=== PATIENT | female | born 1950 | race African-American/Black ===

== ENCOUNTER 2020-12-11 10:46 | Outpatient (REF) | payer MEDICARE, SELFPAY ==
[2020-12-11 12:00] LABS: MANUAL DIFF FLAG NO
[2020-12-11 12:06] LABS: Basophils Percent Auto 0.3 % (0-2); Eosinophils Absolute Auto 0.1 X10*3/uL (0.0-0.4); Hematocrit 46.2 % (37-47); Hemoglobin 14.8 g/dl (12.0-16.0); Imm Gran Abs Auto 0.01 X10*3/uL (0.00-0.03); Imm Gran Pct Auto 0.2 % (0.0-0.4); Lymphocytes Absolute Auto 3.1 X10*3/uL (1.2-4.9); Lymphocytes Percent Auto 49.2 % (20-40); Mean Corpuscular Hemoglobin 30.1 pg (27.0-33.0); Mean Corpuscular Volume 94.1 fL (80-98); Mean Platelet Volume 9.5 fL (9.4-12.3); Monocytes Absolute Auto 0.4 X10*3/uL (0.1-1.2); Monocytes Percent Auto 6.6 % (2-11); Neutrophils Absolute Auto 2.7 X10*3/uL (2.0-8.3); Neutrophils Percent Auto 41.7 % (45-73); Platelet Count 323 X10*3/uL (160-400); Red Blood Count 4.91 X10*6/uL (4.20-5.50); Red Cell Distribution Width 13.6 % (11.0-16.0); White Blood Count 6.4 X10*3/uL (4.8-10.8)
[2020-12-11 12:29] LABS: Alanine Aminotransferase 17 U/L (0-31); Albumin Level 4.1 g/dL (3.5-5.0); Alkaline Phosphatase 78 U/L (39-117); Anion Gap 14 (12-20); Aspartate Amino Transferase 18 U/L (5-31); Bilirubin Total 0.5 mg/dL (0.0-1.0); Blood Urea Nitrogen 10 mg/dL (9-16); Calcium 8.9 mg/dL (8.4-10.2); Carbon Dioxide 25 mmol/L (22-29); Chloride 107 mmol/L (96-108); Cholesterol 155 mg/dL; Estimated Glomerular Filt Rate > 60; Glucose Fasting 82 mg/dL (60-99); HDL Cholesterol 41 mg/dL; LDL Cholesterol Calculated 97 mg/dl; Potassium 4.5 mmol/l (3.3-5.1); Sodium 141 mmol/L (135-145); Total Protein 7.8 g/dL (6.5-8.0); Triglycerides 87 mg/dL
[2020-12-11 12:38] LABS: Free T4 (Free Thyroxine) 1.25 ng/dL (0.71-1.85); Thyroid Stimulating Hormone 0.11 uIU/mL (0.32-4.0)
== END 2020-12-11 10:47 | disposition home or self-care (01) ==
LOC: HO.LAB 10:46
PROVIDERS: PCP Internal Medicine; Visit Provider Internal Medicine
DX: E78.5 Hyperlipidemia, unspecified (principal); E03.9 Hypothyroidism, unspecified; E66.9 Obesity, unspecified; F17.200 Nicotine dependence, unspecified, uncomplicated
CPT/HCPCS: 36415; 80053; 80061; 84439; 84443; 85025

== ENCOUNTER 2021-08-21 08:11 | Outpatient (REF) | payer MEDICARE, SELFPAY ==
[2021-08-21 09:17] LABS: Basophils Percent Auto 0.5 % (0-2); Eosinophils Absolute Auto 0.1 X10*3/uL (0.0-0.4); Eosinophils Percent Auto 2.1 % (0-4); Hematocrit 47.4 % (37-47); Hemoglobin 15.3 g/dl (12.0-16.0); Imm Gran Abs Auto 0.02 X10*3/uL (0.00-0.03); Imm Gran Pct Auto 0.3 % (0.0-0.4); Lymphocytes Absolute Auto 2.9 X10*3/uL (1.2-4.9); Lymphocytes Percent Auto 47.4 % (20-40); MANUAL DIFF FLAG SCAN; Mean Corpuscular HGB Conc 32.3 g/dl (31.0-35.0); Mean Corpuscular Hemoglobin 29.3 pg (27.0-33.0); Mean Corpuscular Volume 90.8 fL (80-98); Monocytes Absolute Auto 0.4 X10*3/uL (0.1-1.2); Monocytes Percent Auto 5.9 % (2-11); Neutrophils Absolute Auto 2.7 X10*3/uL (2.0-8.3); Neutrophils Percent Auto 43.8 % (45-73); PLT CLUMP 1; Red Blood Count 5.22 X10*6/uL (4.20-5.50); Red Cell Distribution Width 13.7 % (11.0-16.0); SCAN SMEAR FLAG 1
[2021-08-21 09:20] LABS: Appearance Urine CLEAR; Color Urine YELLOW; Glucose Urine UA NEG (NEG); Leukocyte Esterase Urine NEG (NEG); Nitrite Urine NEG (NEG); PH 5.5 (5.0-8.0); Specific Gravity - Urine 1.025 (1.005-1.025); Urine Blood TRACE (NEG); Urine Ketones NEG (NEG); Urine Protein NEG (NEG-TRACE)
[2021-08-21 09:35] LABS: RBC Urine 0-2 /HPF (0); WBC Urine 0 /HPF (0-4)
[2021-08-21 09:36] LABS: Mucus Urine 1+ /LPF; Squamous Epithelial Cell Urine 1+ /LPF
[2021-08-21 09:40] LABS: UACC Culture Trigger NO
[2021-08-21 09:49] LABS: Platelet Count 185 X10*3/uL (160-400); White Blood Count 6.1 X10*3/uL (4.8-10.8)
[2021-08-21 09:50] LABS: SLIDE REVIEW VERIFIED
== END 2021-08-21 08:12 | disposition home or self-care (01) ==
LOC: HO.LAB 08:11
PROVIDERS: PCP Internal Medicine; Visit Provider Internal Medicine
DX: I73.9 Peripheral vascular disease, unspecified (principal); E66.9 Obesity, unspecified; E03.9 Hypothyroidism, unspecified; F17.200 Nicotine dependence, unspecified, uncomplicated; E78.00 Pure hypercholesterolemia, unspecified
CPT/HCPCS: 36415; 80053; 80061; 81001; 84439; 84443; 85025

== ENCOUNTER 2022-01-14 08:54 | Outpatient (REF) | payer MEDICARE, SELFPAY ==
[2022-01-14 09:38] LABS: MANUAL DIFF FLAG NO
[2022-01-14 10:13] LABS: Basophils Percent Auto 0.4 % (0-2); Eosinophils Absolute Auto 0.1 X10*3/uL (0.0-0.4); Hemoglobin 15.2 g/dl (12.0-16.0); Imm Gran Abs Auto 0.01 X10*3/uL (0.00-0.03); Imm Gran Pct Auto 0.1 % (0.0-0.4); Lymphocytes Percent Auto 43.7 % (20-40); Mean Corpuscular HGB Conc 31.7 g/dl (31.0-35.0); Mean Corpuscular Hemoglobin 29.7 pg (27.0-33.0); Mean Corpuscular Volume 93.9 fL (80.0-98.0); Mean Platelet Volume 10.1 fL (9.4-12.3); Monocytes Absolute Auto 0.5 X10*3/uL (0.1-1.2); Monocytes Percent Auto 7.7 % (2-11); Neutrophils Absolute Auto 3.2 x10*3/uL (2.0-8.3); Neutrophils Percent Auto 46.1 % (45-73); Platelet Count 251 X10*3/uL (160-400); Red Blood Count 5.11 X10*6/uL (4.20-5.50); Red Cell Distribution Width 14.2 % (11.0-16.0); White Blood Count 6.9 X10*3/uL (4.8-10.8)
[2022-01-14 11:00] LABS: Appearance Urine CLEAR; Color Urine STRAW; Glucose Urine UA NEG (NEG); Leukocyte Esterase Urine NEG (NEG); Nitrite Urine NEG (NEG); Specific Gravity - Urine <= 1.005 (1.005-1.025); Urine Blood NEG (NEG); Urine Ketones NEG (NEG); Urine Protein NEG (NEG-TRACE)
== END 2022-01-14 08:55 | disposition home or self-care (01) ==
LOC: HO.LAB 08:54
PROVIDERS: PCP Internal Medicine; Visit Provider Internal Medicine
DX: I10 Essential (primary) hypertension (principal)
CPT/HCPCS: 36415; 80053; 80061; 81003; 82306; 84439; 84443; 85025

== ENCOUNTER 2022-05-06 09:34 | Outpatient (REF) | payer MEDICARE, SELFPAY ==
--- NOTE | ~2022-05-06 | MM_ITS ---
EXAMINATION: MM SCREENING DIGITAL BREAST TOMOSYNTHESIS, BILATERAL CLINICAL INFORMATION: Screening. Asymptomatic. The lifetime risk of breast cancer based on the Tyrer-Cuzick Model is 3%. COMPARISON: Mammography: 05/05/2017 TECHNIQUE: Digital breast tomosynthesis is performed in both the craniocaudal and mediolateral oblique views along with computer-aided detection (CAD). Synthesized 2D images are generated from the tomosynthesis. FINDINGS: There are scattered areas of fibroglandular density (ACR BI-RADS breast composition Category b). There are no significant masses, abnormal calcifications, or other abnormalities. Parenchymal pattern is similar to prior studies. The axilla and skin contours are unremarkable. MM/MM tomosynthesis screening BI IMPRESSION: No mammographic evidence of malignancy. ASSESSMENT: BI-RADS 1: Negative RECOMMENDATION: Routine annual mammography screening. This patient's information was entered into a reminder system with a target due date for their next mammogram.
[2022-05-06 09:44] LABS: MANUAL DIFF FLAG NO
[2022-05-06 10:38] LABS: Basophils Percent Auto 0.4 % (0-2); Eosinophils Absolute Auto 0.1 X10*3/uL (0.0-0.4); Eosinophils Percent Auto 1.7 % (0-4); Hematocrit 46.4 % (37.0-47.0); Hemoglobin 14.8 g/dl (12.0-16.0); Imm Gran Abs Auto 0.02 X10*3/uL (0.00-0.03); Imm Gran Pct Auto 0.3 % (0.0-0.4); Lymphocytes Absolute Auto 2.8 X10*3/uL (1.2-4.9); Lymphocytes Percent Auto 37.9 % (20-40); Mean Corpuscular HGB Conc 31.9 g/dl (31.0-35.0); Mean Corpuscular Hemoglobin 29.7 pg (27.0-33.0); Mean Corpuscular Volume 93.2 fL (80.0-98.0); Mean Platelet Volume 9.7 fL (9.4-12.3); Monocytes Absolute Auto 0.4 X10*3/uL (0.1-1.2); Monocytes Percent Auto 5.2 % (2-11); Neutrophils Absolute Auto 4.1 x10*3/uL (2.0-8.3); Neutrophils Percent Auto 54.5 % (45-73); Platelet Count 335 X10*3/uL (160-400); Red Blood Count 4.98 X10*6/uL (4.20-5.50); Red Cell Distribution Width 13.6 % (11.0-16.0); White Blood Count 7.5 X10*3/uL (4.8-10.8)
[2022-05-06 11:04] LABS: Alanine Aminotransferase 23 U/L (0-31); Albumin Level 3.8 g/dL (3.5-5.0); Alkaline Phosphatase 87 U/L (39-117); Anion Gap 11 (12-20); Aspartate Amino Transferase 20 U/L (5-31); Bilirubin Total 0.4 mg/dL (0.0-1.0); Blood Urea Nitrogen 10 mg/dL (9-16); Calcium 8.6 mg/dL (8.4-10.2); Carbon Dioxide 25 mmol/L (22-29); Chloride 106 mmol/L (96-108); Cholesterol 160 mg/dL; Estimated Glomerular Filt Rate > 60; Glucose Fasting 95 mg/dL (60-99); HDL Cholesterol 43 mg/dL; LDL Cholesterol Calculated 99 mg/dl; Potassium 4.2 mmol/L (3.3-5.1); Sodium 138 mmol/L (135-145); Total Protein 7.5 g/dL (6.5-8.0); Triglycerides 91 mg/dL
[2022-05-06 11:06] LABS: Appearance Urine CLEAR; Color Urine YELLOW; Glucose Urine UA NEG (NEG); Leukocyte Esterase Urine NEG (NEG); Nitrite Urine NEG (NEG); PH 5.5 (5.0-8.0); Specific Gravity - Urine 1.015 (1.005-1.025); UACC Culture Trigger NO; Urine Blood 1+ (NEG); Urine Ketones NEG (NEG); Urine Protein NEG (NEG-TRACE)
[2022-05-06 11:15] LABS: Thyroid Stimulating Hormone 0.06 uIU/mL (0.32-4.0); Vitamin D 25-OH Total 12.6 ng/mL (>30)
[2022-05-06 11:18] LABS: RBC Urine 0-2 /HPF (0); Squamous Epithelial Cell Urine 2+ /LPF; WBC Urine 0-2 /HPF (0-4)
== END 2022-05-06 09:35 | disposition home or self-care (01) ==
LOC: HO.MAMMO 09:34
PROVIDERS: PCP Internal Medicine; Visit Provider Internal Medicine
DX: Z12.31 Encounter for screening mammogram for malignant neoplasm of breast (principal); E78.00 Pure hypercholesterolemia, unspecified; E55.9 Vitamin D deficiency, unspecified; E03.9 Hypothyroidism, unspecified; I10 Essential (primary) hypertension
CPT/HCPCS: 36415; 77063; 77067; 80053; 80061; 81001; 81003; 82306; 84439; 84443; 85025

== ENCOUNTER 2022-08-23 09:10 | Outpatient (REF) | payer MEDICARE, SELFPAY ==
[2022-08-23 10:49] LABS: Alanine Aminotransferase 19 U/L (0-31); Alkaline Phosphatase 78 U/L (39-117); Anion Gap 13 (12-20); Aspartate Amino Transferase 21 U/L (5-31); Bilirubin Total 0.4 mg/dL (0.0-1.0); Blood Urea Nitrogen 12 mg/dL (9-16); Calcium 9.1 mg/dL (8.4-10.2); Carbon Dioxide 26 mmol/L (22-29); Chloride 106 mmol/L (96-108); Cholesterol 151 mg/dL; Estimated Glomerular Filt Rate > 60; Glucose Fasting 91 mg/dL (60-99); HDL Cholesterol 40 mg/dL; Potassium 4.5 mmol/L (3.3-5.1); Sodium 140 mmol/L (135-145); Total Protein 7.8 g/dL (6.5-8.0)
[2022-08-23 10:56] LABS: Free T4 (Free Thyroxine) 1.39 ng/dL (0.71-1.85); Thyroid Stimulating Hormone 0.04 uIU/mL (0.32-4.0)
[2022-08-23 11:07] LABS: LDL Cholesterol Calculated 90 mg/dl; Triglycerides 109 mg/dL
[2022-08-24 19:56] LABS: Triiodothyronine T3 Total 123 ng/dL (76-181)
== END 2022-08-23 09:11 | disposition home or self-care (01) ==
LOC: HO.LAB 09:10
PROVIDERS: PCP Internal Medicine; Visit Provider Internal Medicine
DX: E55.9 Vitamin D deficiency, unspecified (principal); R79.89 Other specified abnormal findings of blood chemistry; E03.9 Hypothyroidism, unspecified; E78.00 Pure hypercholesterolemia, unspecified
CPT/HCPCS: 36415; 80053; 80061; 82306; 84439; 84443; 84480

== ENCOUNTER 2022-12-26 09:00 | Outpatient (REF) | payer MEDICARE, SELFPAY ==
[2022-12-26 09:23] LABS: MANUAL DIFF FLAG NO
[2022-12-26 09:46] LABS: Basophils Percent Auto 0.3 % (0-2); Eosinophils Absolute Auto 0.1 X10*3/uL (0.0-0.4); Eosinophils Percent Auto 1.4 % (0-4); Hematocrit 48.8 % (37.0-47.0); Hemoglobin 16.1 g/dl (12.0-16.0); Imm Gran Abs Auto 0.01 X10*3/uL (0.00-0.03); Imm Gran Pct Auto 0.1 % (0.0-0.4); Lymphocytes Absolute Auto 2.9 X10*3/uL (1.2-4.9); Lymphocytes Percent Auto 37.9 % (20-40); Mean Corpuscular Hemoglobin 29.5 pg (27.0-33.0); Mean Corpuscular Volume 89.5 fL (80.0-98.0); Mean Platelet Volume 10.3 fL (9.4-12.3); Monocytes Absolute Auto 0.4 X10*3/uL (0.1-1.2); Monocytes Percent Auto 5.5 % (2-11); Neutrophils Absolute Auto 4.2 x10*3/uL (2.0-8.3); Neutrophils Percent Auto 54.8 % (45-73); Platelet Count 301 X10*3/uL (160-400); Red Blood Count 5.45 X10*6/uL (4.20-5.50); Red Cell Distribution Width 13.9 % (11.0-16.0); White Blood Count 7.6 X10*3/uL (4.8-10.8)
[2022-12-26 10:55] LABS: Alanine Aminotransferase 19 U/L (0-31); Albumin Level 4.1 g/dL (3.5-5.0); Alkaline Phosphatase 84 U/L (39-117); Anion Gap 15 (12-20); Aspartate Amino Transferase 20 U/L (5-31); Bilirubin Total 0.6 mg/dL (0.0-1.0); Blood Urea Nitrogen 9 mg/dL (9-16); Calcium 9.5 mg/dL (8.4-10.2); Carbon Dioxide 23 mmol/L (22-29); Chloride 105 mmol/L (96-108); Cholesterol 172 mg/dL; Estimated Glomerular Filt Rate > 60; Glucose Fasting 94 mg/dL (60-99); HDL Cholesterol 41 mg/dL; LDL Cholesterol Calculated 101 mg/dl; Potassium 4.5 mmol/L (3.3-5.1); Sodium 138 mmol/L (135-145); Total Protein 7.8 g/dL (6.5-8.0); Triglycerides 153 mg/dL
[2022-12-26 11:21] LABS: Free T4 (Free Thyroxine) 1.31 ng/dL (0.71-1.85); Thyroid Stimulating Hormone 0.13 uIU/mL (0.32-4.0); Vitamin D 25-OH Total 38.3 ng/mL (>30)
[2023-01-03 03:59] LABS: Thyroglobulin Antibodies <1 IU/mL (< or = 1); Thyroxine Binding Globulin 20.3 mcg/mL (13.5-30.9)
== END 2022-12-26 09:01 | disposition home or self-care (01) ==
LOC: HO.LAB 09:00
PROVIDERS: PCP Internal Medicine; Visit Provider Internal Medicine
DX: E03.9 Hypothyroidism, unspecified (principal); E78.00 Pure hypercholesterolemia, unspecified; I10 Essential (primary) hypertension; E55.9 Vitamin D deficiency, unspecified; R79.89 Other specified abnormal findings of blood chemistry
CPT/HCPCS: 36415; 80053; 80061; 82306; 84439; 84442; 84443; 85025; 86800

== ENCOUNTER → 2023-02-03 07:54 | Outpatient (BNVA) | payer MEDICARE, SELFPAY | PROVIDERS: PCP Internal Medicine; Referring Provider Internal Medicine; Visit Provider Physician Assistant | DX: Z12.11 Encounter for screening for malignant neoplasm of colon (principal); I10 Essential (primary) hypertension | CPT/HCPCS: 99202 ==

== ENCOUNTER 2023-06-04 10:19 | Outpatient (REF) | payer MEDICARE, SELFPAY | END 2023-06-04 10:20 | disposition home or self-care (01) | LOC: HO.LAB 10:19 | PROVIDERS: PCP Internal Medicine; Visit Provider Internal Medicine | DX: Z13.89 Encounter for screening for other disorder (principal) ==

== ENCOUNTER 2023-06-23 17:06 | Outpatient (AMB) | payer MEDICARE, SELFPAY ==
[2023-06-23 17:13] VITALS: BP 126/80; PULSE 101; O2SAT 93; BMI 32.3
--- NOTE | 2023-06-23 17:13 | MHC.PC.OV ---
Vital Signs 06/23/23 17:13 Height 5 ft 6 in Weight 200 lb 6 oz BMI 32.3 BP 126/80 Blood Pressure Location Lt brachial Position Sitting Pulse 101 H Pulse Source Pulse Oximeter Pulse Oximetry (%) 93 Oxygen Delivery Method Room Air Intake Visit Reasons: F/U DM, hyperlipidemia, hypothyroidism Well Flow Operator Required: No Accompanied by: Self / Same As Patient Allergies atorvastatin Adverse Reaction (Unknown, Verified 06/23/23 17:59) diarrhea Medication List - Last Reconciled 06/23/23 by Stanley Sykes MD aspirin (Adult Low Dose Aspirin) 81 mg PO DAILY bisacodyl (Dulcolax (bisacodyl)) 10 mg (2 x 5 mg) PO ONCE 1 day cholecalciferol (vitamin D3) 50 mcg PO DAILY 90 days levothyroxine 112 mcg PO DAILY polyethylene glycol 3350 (Miralax) 238 grams PO ONCE 1 day simvastatin 40 mg PO BEDTIME Tobacco use date assessed: 06/23/23 Fall risk assessment: No Falls in past year Last assessed Fall Risk: 06/23/23 Dental Screening Dental Screen Date: 06/23/23 Did you have a dental visit in the last 12 months?: Yes Did you have a dental problem in the last 6 months where you did not have access to dental care?: No Was dental information given to patient?: Patient has dentist HPI F/U DM, hyperlipidemia, hypothyroidism HPI Details Patient comes in today for her follow up visit States that she feels okay She denies any headaches or dizziness Denies any chest pains, no shortness of breath No nausea/vomiting, no abdominal pain No change in bowel habits noted Was not able to get her follow up labs done - states that she went for her tests 2 weeks ago but the phlebotomists could not draw any blood from her and did not want them to keep trying after a few attempts Adds that she did get her Cologuard testing done last month - would like to know how her test came out [facility] Medical History Acquired hypothyroidism Obesity (BMI 30-39.9) Peripheral arterial disease Pure hypercholesterolemia Smoker Surgical History Hx of colonoscopy S/P angioplasty with stent (~02/2017) S/P excision of lipoma (~07/2016) Family History Father Diabetes mellitus Mother Diabetes mellitus Social History Housing: Apartment Alcohol intake: former Patient Tobacco Use Status: Current someday Tobacco user Tobacco use type: Cigarette Cigarettes Per Day: 1 e-Cigarette/Vaping Use: Never Used Second Hand Smoke Exposure: Yes Current occupational status: retired Cognitive needs: No Hearing needs: No Vision needs: Yes (reading glasses) Questionnaire PHQ-9 Over the last 2 weeks, how often have you been bothered by any of the following problems? 1. Little interest or pleasure in doing things: not at all 2. Feeling down, depressed, or hopeless: not at all 3. Trouble falling or staying asleep, or sleeping too much: not at all 4. Feeling tired or having little energy: not at all 5. Poor appetite or overeating: not at all 6. Feeling bad about yourself - or that you are a failure or have let yourself or your family down: not at all 7. Trouble concentrating on things, such as reading the newspaper or watching television: not at all 8. Moving or speaking so slowly that other people could have noticed. Or the opposite - being so fidgety or restless that you have been moving around a lot more than usual: not at all 9. Thoughts that you would be better off or of hurting yourself in some way: not at all Total score: 0 Depression Screening Interpretation: Negative 01184 - PHQ-9 Billing: Yes Source: Developed by Drs. Rafael Nick, Salome Ferguson, Kemar Joseph and colleagues, with an educational kenny from [employer]. Thrive Questionnaire Date Thrive assessed: 06/23/23 I am a: Patient What is your living situation today?: I have a steady place to live Within the past 12 months, did the food you bought not last and you didn't have the money to get more?: Never true Within the past 12 months, did you worry whether your food would run out before you got money to buy more?: Never true Do you have trouble paying for medicines?: No Do you have trouble getting transportation to medical appointments?: No Do you have trouble paying your heating and electricity bill?: No Do you have trouble taking care of your child, family member or friend?: No Do you have trouble with day-to-day activities such as bathing, preparing meals, shopping, managing finances, etc.?: No Are you currently unemployed and looking for a job?: No Are you interested in more education?: No Please select the resources that you would like help with: None Currently or been in a relationship where the following occur: no concerns reported AUDIT C Alcohol Use Questionnaire (AUDIT-C) 1. How often do you have a drink containing alcohol?: Never 3. How often do you have six or more drinks on one occasion?: Never Total Score: 0 Score Reviewed/Action Taken: Yes ARMAND-7 AMB Questionnaire ARMAND-7 Date ARMAND - 7 assessed: 06/23/23 Feeling nervous, anxious, or on edge: 0 = Not at all Not being able to stop or control worryin = Not at all Worrying too much about different things: 0 = Not at all Trouble relaxin = Not at all Being so restless that it is hard to sit still: 0 = Not at all Becoming easily annoyed or irritable: 0 = Not at all Feeling afraid as if something awful might happen: 0 = Not at all Total ARMAND-7 score (0-4 normal; 5-9 mild; 10-14 moderate; 15-21 severe): 0 Source: Developed by Drs. Rafael Nick, Salome Ferguson, Kemar Joseph and colleagues, with an educational kenny from [employer]. Review of Systems Const Denies fatigue, Denies fever(s) and Denies headache(s) ENT Denies dysphagia, Denies dizziness, Denies otalgia, Denies headache(s), Denies neck pain, Denies odynophagia and Denies sore throat Card Denies chest pain, Denies rapid heart rate, Denies irregular heart rhythm, Denies palpitations and Denies dyspnea Resp Denies cough and Denies dyspnea GI Denies abdominal pain, Denies constipation, Denies dysphagia, Denies heartburn, Denies diarrhea, Denies nausea, Denies odynophagia and Denies vomiting Denies urinary frequency, Denies dysuria and Denies urinary urgency Musc Denies back pain, Denies arthralgias and Denies neck pain Skin/Breast Denies rash Neuro Denies dizziness and Denies headache(s) Psych Denies anxiety and Denies depression Endo Denies fatigue and Denies palpitations Physical exam (Primary Care) Vital Signs: Last Vital Signs Pulse 101 H 06/23/23 17:13 BP 126/80 06/23/23 17:13 Pulse Ox 93 06/23/23 17:13 Oxygen Delivery Method Room Air 06/23/23 17:13 BMI result Body Mass Index 32.3 Tobacco/Smoking Status: Tobacco use Status Tobacco use date assessed 06/23/23 06/23/23 17:15 Patient Tobacco Use Status Current someday Tobacco 06/23/23 17:15 Tobacco use type Cigarette 06/23/23 17:15 e-Cigarette/Vaping Use Never Used 06/23/23 17:15 PHQ-9: PHQ-9 Score PHQ-9: Total score 0 06/23/23 18:01 Depression Screening Interpretation: Negative Thrive Assessment: Date of Thrive Assessment Date Thrive assessed 06/23/23 06/23/23 17:15 Currently or been in a relationship where the following occur: no concerns reported Const General: no acute distress and alert HENMT Ears: TM's normal bilaterally and EAC's normal Throat: Yes posterior oropharynx normal and Yes tonsils normal (no TP congestion) Neck Neck: Yes no lymphadenopathy and Yes supple Thyroid: Thyroid normal Resp Auscultation: clear to auscultation bilaterally, no rales and no wheezes Cardio Rate: regular rate Rhythm: regular rhythm Heart sounds: no murmurs GI Palpation (GI): Soft to palpation and nontender Auscultation: normal bowel sounds General: Yes no CVA tenderness Back/Spine/Pelvis Back: no CVA tenderness Skin Rashes: no rashes Extrem General: Yes no clubbing, cyanosis or edema Assessment and Plan Assessment & Plan (1) Pure hypercholesterolemia: Code(s): E78.00 - Pure hypercholesterolemia, unspecified Plan: Patient tried to get her follow up labs done a couple of weeks ago unsuccessfully Reinforced low cholesterol diet Continue Simvastatin 40 mg QD Will recheck her labs again in 4 months for follow up (2) Acquired hypothyroidism: Code(s): E03.9 - Hypothyroidism, unspecified Plan: TSH remains suppressed but her free T4 level was normal on her previous labs; total T3 level was also normal back then Patient remains clinically euthyroid Continue Levothyroxine 112 mcg QD Will recheck her TFTs in 4 months for follow up (3) Peripheral arterial disease: Comment: S/P balloon angioplasty of the left iliac artery [place] [address] Anthony Quiroga Code(s): I73.9 - Peripheral vascular disease, unspecified Plan: Patient currently remains asymptomatic with no symptoms of claudication Follow up with vascular surgery as scheduled (4) Vitamin D deficiency: Code(s): E55.9 - Vitamin D deficiency, unspecified Plan: Continue Vitamin D3 2000 units QD (5) Smoker: Code(s): F17.200 - Nicotine dependence, unspecified, uncomplicated Plan: Counseled again on smoking cessation (6) Obesity (BMI 30-39.9): Code(s): E66.9 - Obesity, unspecified Plan: Reinforced diet/exercise as tolerated/lose weight Plan Patient is also advised that her recent Cologuard testing came back negative Follow up in 4 months Orders: Orders Comprehensive [place]. Panel Fast 4 Months E78.00 - Pure hypercholesterolemia, unspecified Lipid Panel 4 Months E78.00 - Pure hypercholesterolemia, unspecified Free T4 (Free Thyroxine) 4 Months E03.9 - Hypothyroidism, unspecified Thyroid Stimulating Hormone 4 Months E03.9 - Hypothyroidism, unspecified Vitamin D 25-OH Total 4 Months E55.9 - Vitamin D deficiency, unspecified Complete Blood Count Auto Diff 4 Months I10 - Essential (primary) hypertension UA CC w/rflx Micro + Cult 4 Months R30.0 - Dysuria Coding Level of Care Code Est Pt Level 4 (37274) Diagnoses Pure hypercholesterolemia E78.00 Acquired hypothyroidism E03.9 Peripheral arterial disease I73.9 Vitamin D deficiency E55.9 Smoker F17.200 Obesity (BMI 30-39.9) E66.9
== END 2023-06-23 18:09 | disposition home or self-care (01) ==
PROVIDERS: Visit Provider Internal Medicine
DX: E03.9 Hypothyroidism, unspecified (principal); I73.9 Peripheral vascular disease, unspecified; E55.9 Vitamin D deficiency, unspecified; F17.200 Nicotine dependence, unspecified, uncomplicated; E78.00 Pure hypercholesterolemia, unspecified; E66.9 Obesity, unspecified
CPT/HCPCS: 99214

== ENCOUNTER 2023-10-17 08:58 | Outpatient (REF) | payer MEDICARE, SELFPAY ==
[2023-10-17 09:25] LABS: MANUAL DIFF FLAG NO
[2023-10-17 09:50] LABS: Basophils Percent Auto 0.4 % (0-2); Eosinophils Absolute Auto 0.1 X10*3/uL (0.0-0.4); Eosinophils Percent Auto 1.3 % (0-4); Hemoglobin 14.9 g/dl (12.0-16.0); Imm Gran Abs Auto 0.02 X10*3/uL (0.00-0.03); Imm Gran Pct Auto 0.3 % (0.0-0.4); Lymphocytes Percent Auto 41.8 % (20-40); Mean Corpuscular HGB Conc 31.7 g/dl (31.0-35.0); Mean Corpuscular Hemoglobin 29.6 pg (27.0-33.0); Mean Corpuscular Volume 93.4 fL (80.0-98.0); Mean Platelet Volume 9.6 fL (9.4-12.3); Monocytes Absolute Auto 0.5 X10*3/uL (0.1-1.2); Monocytes Percent Auto 7.2 % (2-11); Neutrophils Absolute Auto 3.5 x10*3/uL (2.0-8.3); Platelet Count 325 X10*3/uL (160-400); Red Blood Count 5.03 X10*6/uL (4.20-5.50); Red Cell Distribution Width 13.6 % (11.0-16.0); White Blood Count 7.2 X10*3/uL (4.8-10.8)
[2023-10-17 10:53] LABS: Appearance Urine Clear; Color Urine Yellow; Glucose Urine UA Negative (Negative); Leukocyte Esterase Urine Negative (Negative); Nitrite Urine Negative (Negative); PH 5.5 (5.0-9.0); Specific Gravity - Urine 1.025 (1.005-1.025); Urine Blood Negative (Negative); Urine Ketones Negative (Negative); Urine Protein Negative (Neg-Trace)
[2023-10-17 10:56] LABS: Alanine Aminotransferase 16 U/L (0-31); Albumin Level 3.8 g/dL (3.5-5.0); Alkaline Phosphatase 73 U/L (39-117); Anion Gap 10 (12-20); Aspartate Amino Transferase 18 U/L (5-31); Bilirubin Total 0.3 mg/dL (0.0-1.0); Blood Urea Nitrogen 16 mg/dL (9-16); Calcium 9.3 mg/dL (8.4-10.2); Carbon Dioxide 27 mmol/L (22-29); Chloride 107 mmol/L (96-108); Cholesterol 143 mg/dL (<200); Estimated Glomerular Filt Rate > 60; Glucose Fasting 86 mg/dL (60-99); HDL Cholesterol 41 mg/dL (>40); LDL Cholesterol Calculated 85 mg/dL (<100); Potassium 4.3 mmol/L (3.3-5.1); Sodium 140 mmol/L (135-145); Total Protein 7.9 g/dL (6.5-8.0); Triglycerides 89 mg/dL (<150)
[2023-10-17 11:03] LABS: Free T4 (Free Thyroxine) 1.34 ng/dL (0.71-1.85); Thyroid Stimulating Hormone 0.05 uIU/mL (0.32-4.0); Vitamin D 25-OH Total 44.3 ng/mL (>30)
== END 2023-10-17 08:59 | disposition home or self-care (01) ==
LOC: HO.LAB 08:58
PROVIDERS: PCP Internal Medicine; Visit Provider Internal Medicine
DX: I10 Essential (primary) hypertension (principal); E55.9 Vitamin D deficiency, unspecified; E03.9 Hypothyroidism, unspecified; E78.00 Pure hypercholesterolemia, unspecified; R30.0 Dysuria
CPT/HCPCS: 36415; 80053; 80061; 81003; 82306; 84439; 84443; 85025

== ENCOUNTER 2023-10-22 16:31 | Outpatient (AMB) | payer MEDICARE, SELFPAY ==
[2023-10-22 16:33] VITALS: BP 150/102; PULSE 86; O2SAT 91; BMI 32.9
--- NOTE | 2023-10-22 16:33 | MHC.PC.OV ---
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 Required: No Accompanied by: Self / Same As Patient Allergies atorvastatin Adverse Reaction (Unknown, Verified 10/22/23 16:55) diarrhea Medication List - Last Reconciled 10/22/23 by Stanley Sykes MD aspirin (Adult Low Dose Aspirin) 81 mg PO DAILY bisacodyl (Dulcolax (bisacodyl)) 10 mg (2 x 5 mg) PO ONCE 1 day cholecalciferol (vitamin D3) 50 mcg PO DAILY 90 days levothyroxine 112 mcg PO DAILY polyethylene glycol 3350 (Miralax) 238 grams PO ONCE 1 day simvastatin 40 mg PO BEDTIME Tobacco use date assessed: 10/22/23 Fall risk assessment: No Falls in past year Last assessed Fall Risk: 10/22/23 Dental Screening Dental Screen Date: 10/22/23 Did you have a dental visit in the last 12 months?: Yes Did you have a dental problem in the last 6 months where you did not have access to dental care?: No Was dental information given to patient?: Patient has dentist HPI HTN, hyperlipidemia HPI Details Patient comes in today for her follow up visit States that she feels okay States that she got into an argument with friend on the way to the office earlier today and that is probably why her blood pressure is high presently States that her blood pressure is usually well controlled when she checks it at home She denies any headaches or dizziness Denies any chest pains, no SOB No nausea/vomiting, no abdominal pain No change in bowel habits noted Had her follow up labs done a few days ago - to discuss her results [facility] Medical History (Updated 10/22/23 @ 17:00 by Stanley Sykes MD) Colon cancer screening Peripheral arterial disease Smoker Obesity (BMI 30-39.9) Pure hypercholesterolemia Acquired hypothyroidism Surgical History Hx of colonoscopy S/P angioplasty with stent (~02/2017) S/P excision of lipoma (~07/2016) Family History Father Diabetes mellitus Mother Diabetes mellitus Social History Housing: Apartment Alcohol intake: former Patient Tobacco Use Status: Current someday Tobacco user Tobacco use type: Cigarette Cigarettes Per Day: 1 e-Cigarette/Vaping Use: Never Used Second Hand Smoke Exposure: Yes Current occupational status: retired Cognitive needs: No Hearing needs: No Vision needs: Yes (reading glasses) Questionnaire PHQ-9 Over the last 2 weeks, how often have you been bothered by any of the following problems? 1. Little interest or pleasure in doing things: not at all 2. Feeling down, depressed, or hopeless: not at all 3. Trouble falling or staying asleep, or sleeping too much: not at all 4. Feeling tired or having little energy: not at all 5. Poor appetite or overeating: not at all 6. Feeling bad about yourself - or that you are a failure or have let yourself or your family down: not at all 7. Trouble concentrating on things, such as reading the newspaper or watching television: not at all 8. Moving or speaking so slowly that other people could have noticed. Or the opposite - being so fidgety or restless that you have been moving around a lot more than usual: not at all 9. Thoughts that you would be better off or of hurting yourself in some way: not at all Total score: 0 Depression Screening Interpretation: Negative Depression Screening Done: Yes 38201 - PHQ-9 Billing: Yes Source: Developed by Drs. Rafael Nick, Salome Ferguson, Kemar Joseph and colleagues, with an educational kenny from [employer]. Thrive Questionnaire Date Thrive assessed: 10/22/23 I am a: Patient What is your living situation today?: I have a steady place to live Within the past 12 months, did the food you bought not last and you didn't have the money to get more?: Never true Within the past 12 months, did you worry whether your food would run out before you got money to buy more?: Never true Do you have trouble paying for medicines?: No Do you have trouble getting transportation to medical appointments?: No Do you have trouble paying your heating and electricity bill?: No Do you have trouble taking care of your child, family member or friend?: No Do you have trouble with day-to-day activities such as bathing, preparing meals, shopping, managing finances, etc.?: No Are you currently unemployed and looking for a job?: No Are you interested in more education?: No Please select the resources that you would like help with: None Currently or been in a relationship where the following occur: no concerns reported AUDIT C Alcohol Use Questionnaire (AUDIT-C) 1. How often do you have a drink containing alcohol?: Never 3. How often do you have six or more drinks on one occasion?: Never Total Score: 0 Score Reviewed/Action Taken: Yes ARMAND-7 AMB Questionnaire ARMAND-7 Date ARMAND - 7 assessed: 10/22/23 Feeling nervous, anxious, or on edge: 0 = Not at all Not being able to stop or control worryin = Not at all Worrying too much about different things: 0 = Not at all Trouble relaxin = Not at all Being so restless that it is hard to sit still: 0 = Not at all Becoming easily annoyed or irritable: 0 = Not at all Feeling afraid as if something awful might happen: 0 = Not at all Total ARMAND-7 score (0-4 normal; 5-9 mild; 10-14 moderate; 15-21 severe): 0 Source: Developed by Drs. Rafael Nick, Salome Ferguson, Kemar Joseph and colleagues, with an educational kenny from [employer]. Review of Systems Const Denies fatigue, Denies fever(s) and Denies headache(s) ENT Denies dysphagia, Denies dizziness, Denies otalgia, Denies headache(s), Denies neck pain, Denies odynophagia and Denies sore throat Card Denies chest pain, Denies rapid heart rate, Denies irregular heart rhythm, Denies palpitations and Denies dyspnea Resp Denies cough and Denies dyspnea GI Denies abdominal pain, Denies constipation, Denies dysphagia, Denies heartburn, Denies diarrhea, Denies nausea, Denies odynophagia and Denies vomiting Denies urinary frequency, Denies dysuria and Denies urinary urgency Musc Denies back pain, Denies arthralgias and Denies neck pain Skin/Breast Denies rash Neuro Denies dizziness and Denies headache(s) Psych Denies anxiety and Denies depression Endo Denies fatigue and Denies palpitations Physical exam (Primary Care) Vital Signs: Last Vital Signs Pulse 86 10/22/23 16:33 BP 150/102 H 10/22/23 16:33 Pulse Ox 91 L 10/22/23 16:33 Oxygen Delivery Method Room Air 10/22/23 16:33 BMI result Body Mass Index 32.9 Tobacco/Smoking Status: Tobacco use Status Tobacco use date assessed 10/22/23 10/22/23 16:42 Patient Tobacco Use Status Current someday Tobacco 10/22/23 16:42 Tobacco use type Cigarette 10/22/23 16:42 e-Cigarette/Vaping Use Never Used 10/22/23 16:42 PHQ-9: PHQ-9 Score PHQ-9: Total score 0 10/22/23 17:02 Depression Screening Interpretation: Negative Thrive Assessment: Date of Thrive Assessment Date Thrive assessed 10/22/23 10/22/23 16:42 Currently or been in a relationship where the following occur: no concerns reported Const General: no acute distress and alert HENMT Ears: TM's normal bilaterally and EAC's normal Throat: Yes posterior oropharynx normal and Yes tonsils normal (no TP congestion) Neck Neck: Yes no lymphadenopathy and Yes supple Resp Auscultation: clear to auscultation bilaterally, no rales and no wheezes Cardio Rate: regular rate Rhythm: regular rhythm Heart sounds: no murmurs GI Palpation (GI): Soft to palpation and nontender Auscultation: normal bowel sounds General: Yes no CVA tenderness Back/Spine/Pelvis Back: no CVA tenderness Skin Rashes: no rashes Extrem General: Yes no clubbing, cyanosis or edema Results Reviewed Results Reviewed: Laboratory Tests 10/17/23 10/17/23 10/17/23 09:24 09:24 09:24 WBC 7.2 Hgb 14.9 Hct 47.0 Plt Count 325 Sodium 140 Potassium 4.3 Creatinine 0.74 Estimated GFR > 60 Fasting Glucose 86 Calcium 9.3 AST 18 ALT 16 Triglycerides 89 Cholesterol 143 LDL Cholesterol, Calc 85 HDL Cholesterol 41 25-OH Vitamin D Total 44.3 TSH 0.05 L Free T4 1.34 Ur Specific [place] Urine Protein Urine Glucose (UA) Urine Blood 10/17/23 10/17/23 09:58 09:58 WBC Hgb Hct Plt Count Sodium Potassium Creatinine Estimated GFR Fasting Glucose Calcium AST ALT Triglycerides Cholesterol LDL Cholesterol, Calc HDL Cholesterol 25-OH Vitamin D Total TSH Free T4 Ur Specific [place] 1.025 Urine Protein Negative Urine Glucose (UA) Negative Urine Blood Negative Assessment and Plan Assessment & Plan (1) Pure hypercholesterolemia: Code(s): E78.00 - Pure hypercholesterolemia, unspecified Plan: Results of her labs done a few days ago reviewed and discussed with patient Reinforced low cholesterol diet Continue Simvastatin 40 mg QD Will recheck her labs and fasting lipids in 4 months for follow up (2) Acquired hypothyroidism: Code(s): E03.9 - Hypothyroidism, unspecified Plan: TSH remains suppressed but her free T4 level was normal on her recent labs; total T3 level was also normal when checked a few months ago Patient remains clinically euthyroid Continue Levothyroxine 112 mcg QD Will recheck her TFTs in 4 months for follow up (3) Peripheral arterial disease: Comment: S/P balloon angioplasty of the left iliac artery [place] [address] Anthony Quiroga Code(s): I73.9 - Peripheral vascular disease, unspecified Plan: Patient currently remains asymptomatic with no symptoms of claudication Follow up with vascular surgery as scheduled (4) Vitamin D deficiency: Code(s): E55.9 - Vitamin D deficiency, unspecified Plan: Continue Vitamin D3 2000 units QD (5) Smoker: Code(s): F17.200 - Nicotine dependence, unspecified, uncomplicated Plan: Counseled again on smoking cessation (6) Obesity (BMI 30-39.9): Code(s): E66.9 - Obesity, unspecified Plan: Reinforced diet/exercise as tolerated/lose weight Plan Follow up in 4 months Orders: Orders Complete Blood Count Auto Diff 4 Months I10 - Essential (primary) hypertension Comprehensive [place]. Panel Fast 4 Months E78.00 - Pure hypercholesterolemia, unspecified Vitamin D 25-OH Total 4 Months E55.9 - Vitamin D deficiency, unspecified Lipid Panel 4 Months E78.00 - Pure hypercholesterolemia, unspecified UA CC w/rflx Micro + Cult 4 Months R30.0 - Dysuria Thyroid Stimulating Hormone 4 Months E03.9 - Hypothyroidism, unspecified Free T4 (Free Thyroxine) 4 Months E03.9 - Hypothyroidism, unspecified Coding Level of Care Code Est Pt Level 4 (56445) Diagnoses Pure hypercholesterolemia E78.00 Acquired hypothyroidism E03.9 Peripheral arterial disease I73.9 Vitamin D deficiency E55.9 Smoker F17.200 Obesity (BMI 30-39.9) E66.9
[2023-10-22 16:55] VITALS: BP 160/100
== END 2023-10-22 17:08 | disposition home or self-care (01) ==
PROVIDERS: PCP Internal Medicine; Visit Provider Internal Medicine
DX: E78.00 Pure hypercholesterolemia, unspecified (principal); I73.9 Peripheral vascular disease, unspecified; Z68.32 Body mass index [BMI] 32.0-32.9, adult; E66.9 Obesity, unspecified; E03.9 Hypothyroidism, unspecified; E55.9 Vitamin D deficiency, unspecified; F17.210 Nicotine dependence, cigarettes, uncomplicated
CPT/HCPCS: 99214

== ENCOUNTER 2024-02-25 09:28 | Outpatient (REF) | payer MEDICARE, SELFPAY ==
[2024-02-25 10:31] LABS: MANUAL DIFF FLAG NO
[2024-02-25 10:34] LABS: Appearance Urine Clear; Color Urine Yellow; Glucose Urine UA Negative (Negative); Leukocyte Esterase Urine Negative (Negative); Nitrite Urine Negative (Negative); PH 5.5 (5.0-9.0); Specific Gravity - Urine <= 1.005 (1.005-1.025); Urine Blood Negative (Negative); Urine Ketones Negative (Negative); Urine Protein Negative (Neg-Trace)
[2024-02-25 10:50] LABS: Basophils Percent Auto 0.6 % (0-2); Eosinophils Absolute Auto 0.1 X10*3/uL (0.0-0.4); Eosinophils Percent Auto 1.1 % (0-4); Hematocrit 46.6 % (37.0-47.0); Hemoglobin 14.7 g/dl (12.0-16.0); Imm Gran Abs Auto 0.02 X10*3/uL (0.00-0.03); Imm Gran Pct Auto 0.3 % (0.0-0.4); Lymphocytes Absolute Auto 3.1 X10*3/uL (1.2-4.9); Lymphocytes Percent Auto 43.4 % (20-40); Mean Corpuscular HGB Conc 31.5 g/dl (31.0-35.0); Mean Corpuscular Hemoglobin 29.2 pg (27.0-33.0); Mean Corpuscular Volume 92.5 fL (80.0-98.0); Monocytes Absolute Auto 0.5 X10*3/uL (0.1-1.2); Neutrophils Absolute Auto 3.4 x10*3/uL (2.0-8.3); Neutrophils Percent Auto 47.6 % (45-73); Platelet Count 321 X10*3/uL (160-400); Red Blood Count 5.04 X10*6/uL (4.20-5.50); Red Cell Distribution Width 14.2 % (11.0-16.0)
[2024-02-25 11:32] LABS: Alanine Aminotransferase 18 U/L (0-31); Albumin Level 3.9 g/dL (3.5-5.0); Alkaline Phosphatase 76 U/L (39-117); Anion Gap 10 (12-20); Aspartate Amino Transferase 16 U/L (5-31); Bilirubin Total 0.6 mg/dL (0.0-1.0); Blood Urea Nitrogen 13 mg/dL (9-16); Calcium 9.1 mg/dL (8.4-10.2); Carbon Dioxide 25 mmol/L (22-29); Chloride 106 mmol/L (96-108); Cholesterol 160 mg/dL (<200); Estimated Glomerular Filt Rate > 60; Glucose Fasting 80 mg/dL (60-99); HDL Cholesterol 42 mg/dL (>40); LDL Cholesterol Calculated 99 mg/dL (<100); Potassium 4.3 mmol/L (3.3-5.1); Sodium 137 mmol/L (135-145); Total Protein 8.1 g/dL (6.5-8.0); Triglycerides 97 mg/dL (<150)
[2024-02-25 11:47] LABS: Thyroid Stimulating Hormone 0.01 uIU/mL (0.32-4.0); Vitamin D 25-OH Total 49.3 ng/mL (>30)
== END 2024-02-25 09:29 | disposition home or self-care (01) ==
LOC: HO.HMGCLDS 09:28
PROVIDERS: PCP Internal Medicine; Visit Provider Internal Medicine
DX: E78.00 Pure hypercholesterolemia, unspecified (principal); E03.9 Hypothyroidism, unspecified; E55.9 Vitamin D deficiency, unspecified; R30.0 Dysuria; I10 Essential (primary) hypertension
CPT/HCPCS: 36415; 80053; 80061; 81003; 82306; 84439; 84443; 85025

== ENCOUNTER 2024-03-02 16:38 | Outpatient (AMB) | payer MEDICARE, SELFPAY ==
[2024-03-02 16:47] VITALS: BP 148/78; PULSE 96; O2SAT 95; BMI 31.0
--- NOTE | 2024-03-02 16:47 | A.OFFPC_ITS ---
Vital Signs 03/02/24 16:47 Height 5 ft 6 in Weight 192 lb BMI 31.0 BP 148/78 H Blood Pressure Location Lt brachial Position Sitting Pulse 96 Pulse Source Pulse Oximeter Pulse Oximetry (%) 95 Oxygen Delivery Method Room Air Intake Visit Reasons: hyperlipidemia, hypothyroidism Defensive Line Coach Required: No Allergies atorvastatin Adverse Reaction (Unknown, Verified 03/02/24 17:45) diarrhea Medication List - Last Reconciled 03/02/24 by Stanley Sykes MD aspirin (Adult Low Dose Aspirin) 81 mg PO DAILY bisacodyl (Dulcolax (bisacodyl)) 10 mg (2 x 5 mg) PO ONCE 1 day cholecalciferol (vitamin D3) 50 mcg PO DAILY 90 days levothyroxine 112 mcg PO DAILY polyethylene glycol 3350 (Miralax) 238 grams PO ONCE 1 day simvastatin 40 mg PO BEDTIME Tobacco use date assessed: 03/02/24 Fall risk assessment: No Falls in past year Last assessed Fall Risk: 03/02/24 Dental Screening Dental Screen Date: 03/02/24 Did you have a dental visit in the last 12 months?: Yes Did you have a dental problem in the last 6 months where you did not have access to dental care?: No Was dental information given to patient?: Patient has dentist HPI hyperlipidemia, hypothyroidism HPI Details Patient comes in today for her follow up visit States that she feels okay She denies any headaches or dizziness Denies any chest pains, no SOB No nausea/vomiting, no abdominal pain No change in bowel habits noted Had her follow up labs done last week - to discuss her results [facility] Medical History Colon cancer screening Peripheral arterial disease Smoker Obesity (BMI 30-39.9) Pure hypercholesterolemia Acquired hypothyroidism Surgical History (Updated 03/02/24 @ 17:49 by Stanley Sykes MD) Hx of colonoscopy S/P angioplasty with stent (~02/2017) S/P excision of lipoma (~07/2016) Family History Father Diabetes mellitus Mother Diabetes mellitus Social History Housing: Apartment Alcohol intake: former Patient Tobacco Use Status: Current someday Tobacco user Tobacco use type: Cigarette Cigarettes Per Day: 1 e-Cigarette/Vaping Use: Never Used Second Hand Smoke Exposure: Yes Current occupational status: retired Cognitive needs: No Hearing needs: No Vision needs: Yes (reading glasses) Questionnaire PHQ-9 Over the last 2 weeks, how often have you been bothered by any of the following problems? 1. Little interest or pleasure in doing things: not at all 2. Feeling down, depressed, or hopeless: not at all 3. Trouble falling or staying asleep, or sleeping too much: not at all 4. Feeling tired or having little energy: not at all 5. Poor appetite or overeating: not at all 6. Feeling bad about yourself - or that you are a failure or have let yourself or your family down: not at all 7. Trouble concentrating on things, such as reading the newspaper or watching television: not at all 8. Moving or speaking so slowly that other people could have noticed. Or the opposite - being so fidgety or restless that you have been moving around a lot more than usual: not at all 9. Thoughts that you would be better off or of hurting yourself in some way: not at all Total score: 0 Depression Screening Interpretation: Negative Depression Screening Done: Yes 61530 - PHQ-9 Billing: Yes Source: Developed by Drs. Rafael Nick, Salome Ferguson, Kemar Joseph and colleagues, with an educational kenny from [employer]. Thrive Questionnaire Date Thrive assessed: 03/02/24 I am a: Patient What is your living situation today?: I have a steady place to live Within the past 12 months, did the food you bought not last and you didn't have the money to get more?: Never true Within the past 12 months, did you worry whether your food would run out before you got money to buy more?: Never true Do you have trouble paying for medicines?: No Do you have trouble getting transportation to medical appointments?: No Do you have trouble paying your heating and electricity bill?: No Do you have trouble taking care of your child, family member or friend?: No Do you have trouble with day-to-day activities such as bathing, preparing meals, shopping, managing finances, etc.?: No Are you currently unemployed and looking for a job?: No Are you interested in more education?: No Please select the resources that you would like help with: None Currently or been in a relationship where the following occur: no concerns reported THRIVE Score: 0 AUDIT C Alcohol Use Questionnaire (AUDIT-C) 1. How often do you have a drink containing alcohol?: Never 3. How often do you have six or more drinks on one occasion?: Never Total Score: 0 Score Reviewed/Action Taken: Yes ARMAND-7 AMB Questionnaire ARMAND-7 Date ARMAND - 7 assessed: 10/22/23 Source: Developed by Drs. Rafael Nick, Salome Ferguson, Kemar Joseph and colleagues, with an educational kenny from [employer]. Review of Systems Const Denies chills, Denies fatigue, Denies fever(s) and Denies headache(s) ENT Denies dysphagia, Denies dizziness, Denies otalgia, Denies headache(s), Denies neck pain, Denies odynophagia and Denies sore throat Card Denies chest pain, Denies rapid heart rate, Denies irregular heart rhythm, Denies palpitations and Denies dyspnea Resp Denies cough and Denies dyspnea GI Denies abdominal pain, Denies constipation, Denies dysphagia, Denies heartburn, Denies diarrhea, Denies nausea, Denies odynophagia and Denies vomiting Denies urinary frequency, Denies dysuria and Denies urinary urgency Musc Denies back pain, Denies arthralgias and Denies neck pain Skin/Breast Denies rash Neuro Denies dizziness and Denies headache(s) Psych Denies anxiety and Denies depression Endo Denies fatigue and Denies palpitations Physical exam (Primary Care) Vital Signs: Last Vital Signs Pulse 96 03/02/24 16:47 BP 148/78 H 03/02/24 16:47 Pulse Ox 95 03/02/24 16:47 Oxygen Delivery Method Room Air 03/02/24 16:47 BMI result Body Mass Index 31.0 Tobacco/Smoking Status: Tobacco use Status Tobacco use date assessed 03/02/24 03/02/24 16:48 Patient Tobacco Use Status Current someday Tobacco 03/02/24 16:48 Tobacco use type Cigarette 03/02/24 16:48 e-Cigarette/Vaping Use Never Used 03/02/24 16:48 Depression Screening Interpretation: Negative Thrive Assessment: Date of Thrive Assessment Date Thrive assessed 10/22/23 03/02/24 16:48 Currently or been in a relationship where the following occur: no concerns reported Const General: no acute distress and alert HENMT Ears: TM's normal bilaterally and EAC's normal Throat: Yes posterior oropharynx normal and Yes tonsils normal (no TP congestion) Neck Neck: Yes no lymphadenopathy and Yes supple Resp Auscultation: clear to auscultation bilaterally, no rales and no wheezes Cardio Rate: regular rate Rhythm: regular rhythm Heart sounds: no murmurs GI Palpation (GI): Soft to palpation and nontender Auscultation: normal bowel sounds General: Yes no CVA tenderness Back/Spine/Pelvis Back: no CVA tenderness Skin Rashes: no rashes Extrem General: Yes no clubbing, cyanosis or edema Results Reviewed Results Reviewed: Laboratory Tests 02/25/24 02/25/24 07:40 09:32 WBC 7.0 Hgb 14.7 Hct 46.6 Plt Count 321 Sodium 137 Potassium 4.3 Creatinine 0.71 Estimated GFR > 60 Fasting Glucose 80 Calcium 9.1 AST 16 ALT 18 Triglycerides 97 Cholesterol 160 LDL Cholesterol, Calc 99 HDL Cholesterol 42 25-OH Vitamin D Total 49.3 TSH 0.01 L Free T4 1.30 Ur Specific [place] <= 1.005 Urine Protein Negative Urine Glucose (UA) Negative Urine Blood Negative Urine Nitrite Negative Ur Leukocyte Esterase Negative Assessment and Plan Assessment & Plan (1) Pure hypercholesterolemia: Code(s): E78.00 - Pure hypercholesterolemia, unspecified Plan: Results of her labs done last week reviewed and discussed with patient Reinforced low cholesterol diet Continue Simvastatin 40 mg QD Will recheck her labs and fasting lipids in 6 months for follow up (2) Acquired hypothyroidism: Code(s): E03.9 - Hypothyroidism, unspecified Plan: Her TSH remains suppressed but her free T4 level is still normal on her recent labs; total T3 level was also normal when checked a few months ago Patient remains clinically euthyroid Continue Levothyroxine 112 mcg QD Will recheck her TFTs in 6 months for follow up (3) Peripheral arterial disease: Comment: S/P balloon angioplasty of the left iliac artery [place] [address] Anthony Quiroga Code(s): I73.9 - Peripheral vascular disease, unspecified Plan: Patient currently remains asymptomatic with no symptoms of claudication She had repeat arterial duplex done last month, which showed only minimal vascular disease Follow up with vascular surgery as scheduled (4) Vitamin D deficiency: Code(s): E55.9 - Vitamin D deficiency, unspecified Plan: Continue Vitamin D3 2000 units QD (5) Smoker: Code(s): F17.200 - Nicotine dependence, unspecified, uncomplicated Plan: Counseled again on smoking cessation (6) Obesity (BMI 30-39.9): Code(s): E66.9 - Obesity, unspecified Plan: Reinforced diet/exercise as tolerated/lose weight Plan Follow up in 6 months Orders: Orders Thyroid Stimulating Hormone 6 Months E03.9 - Hypothyroidism, unspecified Complete Blood Count Auto Diff 6 Months D64.9 - Anemia, unspecified Comprehensive [place]. Panel Fast 6 Months E78.00 - Pure hypercholesterolemia, unspecified UA CC w/rflx Micro + Cult 6 Months R30.0 - Dysuria Vitamin D 25-OH Total 6 Months E55.9 - Vitamin D deficiency, unspecified Free T4 (Free Thyroxine) 6 Months E03.9 - Hypothyroidism, unspecified Lipid Panel 6 Months E78.00 - Pure hypercholesterolemia, unspecified Coding Level of Care Code Est Pt Level 4 (36830) Diagnoses Pure hypercholesterolemia E78.00 Acquired hypothyroidism E03.9 Peripheral arterial disease I73.9 Vitamin D deficiency E55.9 Smoker F17.200 Obesity (BMI 30-39.9) E66.9
== END 2024-03-02 17:32 | disposition home or self-care (01) ==
PROVIDERS: PCP Internal Medicine; Visit Provider Internal Medicine
DX: E78.00 Pure hypercholesterolemia, unspecified (principal); E03.9 Hypothyroidism, unspecified; I73.9 Peripheral vascular disease, unspecified; E55.9 Vitamin D deficiency, unspecified; F17.200 Nicotine dependence, unspecified, uncomplicated
CPT/HCPCS: 99214

== ENCOUNTER 2024-08-13 09:13 | Outpatient (REF) | payer MEDICARE, SELFPAY ==
[2024-08-13 10:00] LABS: MANUAL DIFF FLAG NO
[2024-08-13 10:09] LABS: Basophils Percent Auto 0.5 % (0-2); Eosinophils Absolute Auto 0.1 X10*3/uL (0.0-0.4); Eosinophils Percent Auto 1.8 % (0-4); Hematocrit 45.9 % (37.0-47.0); Hemoglobin 14.9 g/dl (12.0-16.0); Imm Gran Abs Auto 0.01 X10*3/uL (0.00-0.03); Imm Gran Pct Auto 0.2 % (0.0-0.4); Lymphocytes Absolute Auto 3.1 X10*3/uL (1.2-4.9); Lymphocytes Percent Auto 48.3 % (20-40); Mean Corpuscular HGB Conc 32.5 g/dl (31.0-35.0); Mean Corpuscular Hemoglobin 29.7 pg (27.0-33.0); Mean Corpuscular Volume 91.6 fL (80.0-98.0); Mean Platelet Volume 9.7 fL (9.4-12.3); Monocytes Absolute Auto 0.5 X10*3/uL (0.1-1.2); Monocytes Percent Auto 8.2 % (2-11); Neutrophils Absolute Auto 2.7 x10*3/uL (2.0-8.3); Platelet Count 313 X10*3/uL (160-400); Red Blood Count 5.01 X10*6/uL (4.20-5.50); Red Cell Distribution Width 13.5 % (11.0-16.0); White Blood Count 6.5 X10*3/uL (4.8-10.8)
[2024-08-13 11:02] LABS: Alanine Aminotransferase 15 U/L (0-31); Albumin Level 3.9 g/dL (3.5-5.0); Alkaline Phosphatase 75 U/L (39-117); Anion Gap 11 (12-20); Aspartate Amino Transferase 18 U/L (5-31); Bilirubin Total 0.4 mg/dL (0.0-1.0); Blood Urea Nitrogen 14 mg/dL (9-16); Calcium 9.4 mg/dL (8.4-10.2); Carbon Dioxide 25 mmol/L (22-29); Chloride 107 mmol/L (96-108); Cholesterol 144 mg/dL (<200); Estimated Glomerular Filt Rate > 60; Glucose Fasting 81 mg/dL (60-99); HDL Cholesterol 34 mg/dL (>40); LDL Cholesterol Calculated 88 mg/dL (<100); Potassium 4.3 mmol/L (3.3-5.1); Sodium 139 mmol/L (135-145); Triglycerides 112 mg/dL (<150)
[2024-08-13 11:23] LABS: Free T4 (Free Thyroxine) 1.22 ng/dL (0.71-1.85); Thyroid Stimulating Hormone 0.07 uIU/mL (0.32-4.0); Vitamin D 25-OH Total 40.5 ng/mL (>30)
== END 2024-08-13 09:14 | disposition home or self-care (01) ==
LOC: HO.HMGCLDS 09:13
PROVIDERS: PCP Internal Medicine; Visit Provider Internal Medicine
DX: E03.9 Hypothyroidism, unspecified (principal); D64.9 Anemia, unspecified; E78.00 Pure hypercholesterolemia, unspecified; E55.9 Vitamin D deficiency, unspecified
CPT/HCPCS: 36415; 80053; 80061; 82306; 84439; 84443; 85025

== ENCOUNTER 2024-09-20 17:08 | Outpatient (AMB) | payer MEDICARE, SELFPAY ==
--- NOTE | 2024-09-20 17:11 | MHC.PC.OV ---
Vital Signs 09/20/24 17:12 Height 5 ft 6 in Weight 199 lb 8 oz BMI 32.2 BP 140/80 H Blood Pressure Location Lt brachial Position Sitting Pulse 66 Pulse Source Pulse Oximeter Pulse Oximetry (%) 96 Oxygen Delivery Method Room Air Intake Visit Reasons: 4 month f/u Game Tester Required: No Accompanied by: Self / Same As Patient Allergies atorvastatin Adverse Reaction (Unknown, Verified 09/20/24 17:47) diarrhea Medication List - Last Reconciled 09/20/24 by Stanley Sykes MD aspirin (Adult Low Dose Aspirin) 81 mg PO DAILY bisacodyl (Dulcolax (bisacodyl)) 10 mg (2 x 5 mg) PO ONCE 1 day cholecalciferol (vitamin D3) 50 mcg PO DAILY 90 days levothyroxine 112 mcg PO DAILY polyethylene glycol 3350 (Miralax) 238 grams PO ONCE 1 day simvastatin 40 mg PO BEDTIME Tobacco use date assessed: 09/20/24 Fall risk assessment: No Falls in past year Last assessed Fall Risk: 09/20/24 Dental Screening Dental Screen Date: 09/20/24 Did you have a dental visit in the last 12 months?: Yes Did you have a dental problem in the last 6 months where you did not have access to dental care?: No Was dental information given to patient?: Patient has dentist HPI 4 month f/u HPI Details Patient comes in today for her follow up visit States that she is aware that she has gained some weight since her last visit but states that she feels okay She denies any headaches or dizziness Denies any chest pains, no SOB No nausea/vomiting, no abdominal pain No change in bowel habits noted She had her follow up labs done a few weeks ago - to discuss her results [facility] Medical History Colon cancer screening Peripheral arterial disease Smoker Obesity (BMI 30-39.9) Pure hypercholesterolemia Acquired hypothyroidism Surgical History Hx of colonoscopy S/P angioplasty with stent (~02/2017) S/P excision of lipoma (~07/2016) Family History Father Diabetes mellitus Mother Diabetes mellitus Social History Housing: Apartment Alcohol intake: former Patient Tobacco Use Status: Current someday Tobacco user Tobacco use type: Cigarette Cigarettes Per Day: 1 e-Cigarette/Vaping Use: Never Used Second Hand Smoke Exposure: Yes service: No Current occupational status: retired Cognitive needs: No Hearing needs: No Vision needs: Yes (reading glasses) Questionnaire PHQ-9 Over the last 2 weeks, how often have you been bothered by any of the following problems? 1. Little interest or pleasure in doing things: not at all 2. Feeling down, depressed, or hopeless: not at all 3. Trouble falling or staying asleep, or sleeping too much: not at all 4. Feeling tired or having little energy: not at all 5. Poor appetite or overeating: not at all 6. Feeling bad about yourself - or that you are a failure or have let yourself or your family down: not at all 7. Trouble concentrating on things, such as reading the newspaper or watching television: not at all 8. Moving or speaking so slowly that other people could have noticed. Or the opposite - being so fidgety or restless that you have been moving around a lot more than usual: not at all 9. Thoughts that you would be better off or of hurting yourself in some way: not at all Total score: 0 Depression Screening Interpretation: Negative Depression Screening Done: Yes 09680 - PHQ-9 Billing: Yes Source: Developed by Drs. Rafael Nick, Salome Ferguson, Kemar Joseph and colleagues, with an educational kenny from [employer]. Thrive Questionnaire Date Thrive assessed: 09/20/24 I am a: Patient What is your living situation today?: I have a steady place to live Within the past 12 months, did the food you bought not last and you didn't have the money to get more?: Never true Within the past 12 months, did you worry whether your food would run out before you got money to buy more?: Never true Do you have trouble paying for medicines?: No Do you have trouble getting transportation to medical appointments?: No Do you have trouble paying your heating and electricity bill?: No Do you have trouble taking care of your child, family member or friend?: No Do you have trouble with day-to-day activities such as bathing, preparing meals, shopping, managing finances, etc.?: No Are you currently unemployed and looking for a job?: No Are you interested in more education?: No Please select the resources that you would like help with: None Currently or been in a relationship where the following occur: No concerns reported THRIVE Score: 0 AUDIT C Alcohol Use Questionnaire (AUDIT-C) 1. How often do you have a drink containing alcohol?: Never 3. How often do you have six or more drinks on one occasion?: Never Total Score: 0 Score Reviewed/Action Taken: Yes ARMAND-7 AMB Questionnaire ARMAND-7 Date ARMAND - 7 assessed: 09/20/24 Feeling nervous, anxious, or on edge: 0 = Not at all Not being able to stop or control worryin = Not at all Worrying too much about different things: 0 = Not at all Trouble relaxin = Not at all Being so restless that it is hard to sit still: 0 = Not at all Becoming easily annoyed or irritable: 0 = Not at all Feeling afraid as if something awful might happen: 0 = Not at all Total ARMAND-7 score (0-4 normal; 5-9 mild; 10-14 moderate; 15-21 severe): 0 Source: Developed by Drs. Rafael Nick, Salome Ferguson, Kemar Joseph and colleagues, with an educational kenny from [employer]. Review of Systems Const Denies chills, Denies fatigue, Denies fever(s) and Denies headache(s) ENT Denies dysphagia, Denies dizziness, Denies otalgia, Denies headache(s), Denies neck pain, Denies odynophagia and Denies sore throat Card Denies chest pain, Denies rapid heart rate, Denies irregular heart rhythm, Denies palpitations and Denies dyspnea Resp Denies chest congestion, Denies cough and Denies dyspnea GI Denies abdominal pain, Denies constipation, Denies dysphagia, Denies heartburn, Denies diarrhea, Denies nausea, Denies odynophagia and Denies vomiting Denies urinary frequency, Denies dysuria and Denies urinary urgency Musc Denies back pain, Denies arthralgias and Denies neck pain Skin/Breast Denies rash Neuro Denies dizziness and Denies headache(s) Psych Denies anxiety and Denies depression Endo Denies fatigue and Denies palpitations Physical exam (Primary Care) Vital Signs: Last Vital Signs Pulse 66 09/20/24 17:12 BP 140/80 H 09/20/24 17:12 Pulse Ox 96 09/20/24 17:12 Oxygen Delivery Method Room Air 09/20/24 17:12 BMI result Body Mass Index 32.2 Tobacco/Smoking Status: Tobacco use Status Tobacco use date assessed 09/20/24 09/20/24 17:13 Patient Tobacco Use Status Current someday Tobacco 09/20/24 17:13 Tobacco use type Cigarette 09/20/24 17:13 e-Cigarette/Vaping Use Never Used 09/20/24 17:13 PHQ-9: PHQ-9 Score PHQ-9: Total score 0 09/20/24 17:54 Depression Screening Interpretation: Negative Thrive Assessment: Date of Thrive Assessment Date Thrive assessed 09/20/24 09/20/24 17:13 Currently or been in a relationship where the following occur: No concerns reported Const General: no acute distress and alert HENMT Ears: TM's normal bilaterally and EAC's normal Throat: Yes posterior oropharynx normal and Yes tonsils normal (no TP congestion) Neck Neck: Yes no lymphadenopathy and Yes supple Resp Auscultation: clear to auscultation bilaterally, no rales and no wheezes Cardio Rate: regular rate Rhythm: regular rhythm Heart sounds: no murmurs GI Palpation (GI): Soft to palpation and nontender Auscultation: normal bowel sounds General: Yes no CVA tenderness Back/Spine/Pelvis Back: no CVA tenderness Skin Rashes: no rashes Extrem General: Yes no clubbing, cyanosis or edema Results Reviewed Results Reviewed: Laboratory Tests 08/13/24 09:21 WBC 6.5 Hgb 14.9 Hct 45.9 Plt Count 313 Sodium 139 Potassium 4.3 Creatinine 0.77 Estimated GFR > 60 Fasting Glucose 81 Calcium 9.4 AST 18 ALT 15 Triglycerides 112 Cholesterol 144 LDL Cholesterol, Calc 88 HDL Cholesterol 34 L 25-OH Vitamin D Total 40.5 TSH 0.07 L Free T4 1.22 Coding Level of Care Code Est Pt Level 4 (80677) Diagnoses Pure hypercholesterolemia E78.00 Acquired hypothyroidism E03.9 Peripheral arterial disease I73.9 Vitamin D deficiency E55.9 Smoker F17.200 Obesity (BMI 30-39.9) E66.9 Assessment & Plan Assessment & Plan (1) Pure hypercholesterolemia: Code(s): E78.00 - Pure hypercholesterolemia, unspecified Category: Medical Plan: Results of her labs done a few weeks ago reviewed and discussed with patient Reinforced low cholesterol diet Continue Simvastatin 40 mg QD Will recheck her labs and fasting lipids in 6 months for follow up (2) Acquired hypothyroidism: Code(s): E03.9 - Hypothyroidism, unspecified Category: Medical Plan: Her TSH remains suppressed but her free T4 level is still normal on her recent labs; total T3 level was also normal when checked a few months ago Patient remains clinically euthyroid Continue Levothyroxine 112 mcg QD Will recheck her TFTs in 6 months for follow up; will also reassess her low TSH level with TPO-Ab and T3 level in 6 months May also consider thyroid US later on for further evaluation (3) Peripheral arterial disease: Comment: S/P balloon angioplasty of the left iliac artery [place] [address] Anthony Quiroga Code(s): I73.9 - Peripheral vascular disease, unspecified Category: Medical Plan: Patient currently remains asymptomatic with no symptoms of claudication She had repeat arterial duplex done in January 2024, which showed only minimal vascular disease Follow up with vascular surgery as scheduled (4) Vitamin D deficiency: Code(s): E55.9 - Vitamin D deficiency, unspecified Category: Medical Plan: Continue Vitamin D3 2000 units QD (5) Smoker: Code(s): F17.200 - Nicotine dependence, unspecified, uncomplicated Category: Social Hx Plan: Patient is counseled again on smoking cessation (6) Obesity (BMI 30-39.9): Code(s): E66.9 - Obesity, unspecified Category: Medical Plan: Reinforced diet/exercise as tolerated/lose weight Plan Follow up in 6 months Orders: Orders Complete Blood Count Auto Diff 6 Months D64.9 - Anemia, unspecified Lipid Panel 6 Months E78.00 - Pure hypercholesterolemia, unspecified Thyroid Stimulating Hormone 6 Months E03.9 - Hypothyroidism, unspecified Free T4 (Free Thyroxine) 6 Months E03.9 - Hypothyroidism, unspecified Thyroid Peroxidase Antibodies 6 Months R79.89 - Other specified abnormal findings of blood chemistry Triiodothyronine T3 Total 6 Months R79.89 - Other specified abnormal findings of blood chemistry Comprehensive [place]. Panel Fast 6 Months E78.00 - Pure hypercholesterolemia, unspecified UA CC w/rflx Micro + Cult 6 Months R30.0 - Dysuria Vitamin D 25-OH Total 6 Months E55.9 - Vitamin D deficiency, unspecified
[2024-09-20 17:12] VITALS: BP 140/80; PULSE 66; O2SAT 96; BMI 32.2
== END 2024-09-20 17:55 | disposition home or self-care (01) ==
LOC: HO.HMCH 17:08
PROVIDERS: PCP Internal Medicine; Visit Provider Internal Medicine
DX: E78.00 Pure hypercholesterolemia, unspecified (principal); I73.9 Peripheral vascular disease, unspecified; E66.9 Obesity, unspecified; Z68.32 Body mass index [BMI] 32.0-32.9, adult; E03.9 Hypothyroidism, unspecified; E55.9 Vitamin D deficiency, unspecified; F17.200 Nicotine dependence, unspecified, uncomplicated

== ENCOUNTER → 2024-09-20 17:08 | Outpatient (BNVA) | payer MEDICARE, SELFPAY | PROVIDERS: PCP Internal Medicine; Visit Provider Internal Medicine | DX: E78.00 Pure hypercholesterolemia, unspecified (principal); E03.9 Hypothyroidism, unspecified; I73.9 Peripheral vascular disease, unspecified; E55.9 Vitamin D deficiency, unspecified; E66.9 Obesity, unspecified; F17.200 Nicotine dependence, unspecified, uncomplicated; Z71.6 Tobacco abuse counseling | CPT/HCPCS: 96127; 99212 ==

== ENCOUNTER 2025-02-27 07:53 | Emergency (ER) | payer MEDICARE, SELFPAY ==
--- NOTE | ~2025-02-27 | CT_ITS ---
CLINICAL HISTORY: smoker, hypoxic, tachy r o PE CT angiography chest with contrast. 3D Postprocessing. Comparison: CT - CT ANGIO CHEST PE PROTOCOL - 02/27/25 10:49 EDT Findings: There is a small pericardial effusion. The heart is nonenlarged. There is no heart strain by CT. No pulmonary arterial filling defect within the visualized arteries. No significant adenopathy. Mild atherosclerotic disease of the coronary arteries. There is bilateral airway thickening and interlobular septal thickening with ground-glass density. No effusion. No pneumothorax. No suspicious pulmonary lesion identified. There is bizv-oj-uvxkfgae centrilobular emphysema. No acute osseous finding. Visualized upper abdomen is unremarkable. Degenerative changes seen within the spine. Impression: No pulmonary embolism identified. No heart strain by CT. Small pericardial effusion. Airway thickening with interlobular septal thickening. Correlation for mild interstitial edema. Centrilobular emphysema. This document has been electronically signed by: Kiko Hussein MD on 02/27/2025 11:49:34
--- NOTE | ~2025-02-27 | XR_ITS ---
CLINICAL HISTORY: atraumatic ankle swelling 3 views left ankle Comparison: None Findings: No fractures, subluxations or dislocations. Ankle mortise intact. Normal plafond. No osteochondral lesions. Calcaneus and subtalar joint intact. No significant arthritic change. Plantar calcaneal enthesophyte Soft tissue swelling Normal pre-Achilles fat pad. No radiopaque foreign body. Impression: 1. Soft tissue swelling without acute osseous abnormality This document has been electronically signed by: Lele Samuel MD on 02/27/2025 10:08:44
--- NOTE | ~2025-02-27 | US_ITS ---
CLINICAL HISTORY: pedal swelling, hypoxic, r o DVT Left lower extremity duplex venous Doppler Comparison: None Technique: Grayscale/Color/Duplex Doppler sonographic evaluation of the deep venous system within the left lower extremity. Findings: Left lower extremity Common femoral vein: Patent CFV/GSV junction: Patent Femoral vein: Patent Popliteal vein: Patent Infrapopliteal veins: Patent where seen Soft tissue: No focal abnormality Impression: 1. Negative for left lower extremity DVT. 2. No Finn's cyst This document has been electronically signed by: Lele Samuel MD on 02/27/2025 11:18:10
--- NOTE | ~2025-02-27 | XR_ITS ---
CLINICAL HISTORY: hypoxic Exam: PA and lateral views of the chest. Comparison: None. Findings: Lungs are well inflated. Cardiac silhouette is within normal limits. Interstitial markings are diffusely prominent, most pronounced centrally. No dense area of consolidation. No pleural effusion or pneumothorax. Impression: Nonspecific central interstitial prominence. This can be seen with edema, bronchitis/bronchiolitis, or interstitial lung disease. This document has been electronically signed by: Yemi Valencia MD on 02/27/2025 08:24:13
--- NOTE | ~2025-02-27 | XR_ITS ---
CLINICAL HISTORY: atraumatic ankle swelling 3 views left foot Comparison: None Findings: No fractures, subluxations or dislocations. No periostitis or bony destruction. Joint intervals are preserved. No marginal erosions or overhanging osteophytes. Calcaneus and subtalar joint intact. Mild joint space narrowing of the interphalangeal joints Plantar calcaneal enthesophyte Soft tissue swelling. Probable calcific tendinopathy at the level of the base of the 5th metatarsal bone No radiopaque foreign body. Impression: 1. Soft tissue swelling with no acute osseous abnormalities This document has been electronically signed by: Lele Samuel MD on 02/27/2025 10:07:06
[2025-02-27 08:01] VITALS: BP 198/81; PULSE 106; RESP 16; TEMP 36.7; O2SAT 86; BMI 33.1
[2025-02-27 08:33] LABS: MANUAL DIFF FLAG NO
[2025-02-27 08:40] VITALS: O2SAT 92
[2025-02-27 08:54] LABS: Alanine Aminotransferase 21 U/L (0-31); Albumin Level 3.9 g/dL (3.5-5.0); Alkaline Phosphatase 89 U/L (39-117); Anion Gap 14 (12-20); Aspartate Amino Transferase 24 U/L (5-31); Bilirubin Total 0.4 mg/dL (0.0-1.0); Blood Urea Nitrogen 14 mg/dL (9-16); Calcium 9.3 mg/dL (8.4-10.2); Carbon Dioxide 22 mmol/L (22-29); Chloride 109 mmol/L (96-108); Creatinine Clr Calc Pharmacy 77.2; Estimated Glomerular Filt Rate > 60; Glucose Random 99 mg/dL (60-115); Potassium 4.1 mmol/L (3.3-5.1); Sodium 141 mmol/L (135-145)
[2025-02-27 08:58] LABS: B Type Natriuretic Peptide 10 pg/mL (<100)
[2025-02-27 09:04] LABS: Troponin-I High Sensitivity < 2.7 ng/L (<3.5-17.0)
[2025-02-27 09:05] LABS: Basophils Percent Auto 0.4 % (0-2); Eosinophils Absolute Auto 0.1 X10*3/uL (0.0-0.4); Eosinophils Percent Auto 1.1 % (0-4); Hematocrit 49.9 % (37.0-47.0); Hemoglobin 16.2 g/dl (12.0-16.0); Imm Gran Abs Auto 0.03 X10*3/uL (0.00-0.03); Imm Gran Pct Auto 0.4 % (0.0-0.4); Lymphocytes Absolute Auto 2.4 X10*3/uL (1.2-4.9); Lymphocytes Percent Auto 33.7 % (20-40); Mean Corpuscular HGB Conc 32.5 g/dl (31.0-35.0); Mean Corpuscular Hemoglobin 29.8 pg (27.0-33.0); Mean Corpuscular Volume 91.7 fL (80.0-98.0); Mean Platelet Volume 9.6 fL (9.4-12.3); Monocytes Absolute Auto 0.5 X10*3/uL (0.1-1.2); Monocytes Percent Auto 6.9 % (2-11); Neutrophils Absolute Auto 4.1 x10*3/uL (2.0-8.3); Neutrophils Percent Auto 57.5 % (45-73); Platelet Count 328 X10*3/uL (160-400); Red Blood Count 5.44 X10*6/uL (4.20-5.50); White Blood Count 7.1 X10*3/uL (4.8-10.8)
[2025-02-27 09:37] LABS: Influenza A PCR NEGATIVE (Negative); Influenza B PCR NEGATIVE (Negative); Resp Syncy Virus RNA Qual PCR NEGATIVE (Negative); SARS COV2 PCR INHOUSE NEGATIVE (Negative)
--- NOTE | 2025-02-27 09:53 | ED.LOWEXIN ---
HPI - Extremity Injury (Lower) General Chief Complaint: Extremity Injury, Lower Stated Complaint: foot swelling Time Seen by Provider: 02/27/25 08:39 Source: patient Mode of arrival: ambulatory Limitations: no limitations History of Present Illness ED Provider: NATALIE SINGH PA-C HPI Narrative: 74 year old female with pmhx significant for HTN, PAD, hypothyroidism presents to the ED today for evaluation of left foot swelling x 1 month. Reports associated discomfort. Denies any injury/ trauma/ falls. States she was evaluated at [facility] for this 1 month ago. Per patient, her workup was reportedly unremarkable and she was discharged home, told to elevate her lower extremities to help with swelling. She presents today with continued swelling to her left foot. She states the severity of swelling fluctuates day to day. 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 She has limited time to keep her LEs elevated. Reports occasional swelling to her right foot as well. No recent travel or long car rides. Not on AC. Takes a baby aspirin daily. Denies calf pain. No hx gout or DM. Of note, patient was noted to be hypoxic in triage with an O2 saturation of 86% on RA. She tells me she had smoked a cigarette outside the ED prior to being triaged due to stress . She was re-vitaled a few minutes later while at rest and O2 had improved to 92% on RA. On my evaluation, patient is sustaining an O2 saturation of 95% on room air while seated on the hospital stretcher. She denies any difficulty breathing, chest pain, shortness of breath, cough, hemoptysis. Reports smoking approximately 3 cigarettes/day. Cannot recall how long she has smoked for - states it's been years . Denies known history of asthma/ COPD. Not dependent on O2 at home. No known sick contacts. Related Data Previous Rx's ?Medication ?Instructions ?Recorded bisacodyl 5 mg tablet,delayed 10 mg (2 x 5 mg) PO ONCE 02/03/23 release (Dulcolax (bisacodyl)) colonoscopy prep 1 day #2 tabs polyethylene glycol 3350 17 238 g PO ONCE 1 day #238 grams 02/03/23 gram/dose oral powder (Miralax) aspirin 81 mg tablet,delayed 81 mg PO DAILY #90 tabs 06/02/23 release (Adult Low Dose Aspirin) cholecalciferol (vitamin D3) 50 50 mcg PO DAILY 90 days #90 caps 03/24/24 mcg (2,000 unit) capsule simvastatin 40 mg tablet 40 mg PO BEDTIME #90 tabs 02/22/25 levothyroxine 112 mcg tablet 112 mcg PO DAILY #90 tabs 02/23/25 budesonide-formoterol HFA 160 2 puff inhalation BID #10.2 grams 02/27/25 mcg-4.5 mcg/actuation aerosol inhaler (Symbicort) miscellaneous medical supply #2 ea 02/27/25 Allergies Allergy/AdvReac Type Severity Reaction Status Date / Time atorvastatin AdvReac Unknown diarrhea Verified 02/27/25 08:04 Review of Systems Review of Systems: Yes all other systems are reviewed and are negative [facility] Past Medical History Attestation statement: The following information was validated with the patient. Source: old records reviewed and nursing notes reviewed Medical History Colon cancer screening Peripheral arterial disease Smoker Obesity (BMI 30-39.9) Pure hypercholesterolemia Acquired hypothyroidism Surgical History Hx of colonoscopy S/P angioplasty with stent (~02/2017) S/P excision of lipoma (~07/2016) Family History Family History Father Diabetes mellitus Mother Diabetes mellitus Social History Social History Housing: Apartment Alcohol intake: former Patient Tobacco Use Status: Current someday Tobacco user Tobacco use type: Cigarette Cigarettes Per Day: 1 e-Cigarette/Vaping Use: Never Used Second Hand Smoke Exposure: Yes Advance Directives: No Advance Directives Information Provided: No service: No Current occupational status: retired Cognitive needs: No Hearing needs: No Vision needs: Yes (reading glasses) Physical Exam Vital Signs: Vital Signs: Last Vital Signs Temp 97.3 F 02/27/25 13:02 Pulse 87 02/27/25 13:02 Resp 20 02/27/25 13:02 BP 172/82 H 02/27/25 13:02 Pulse Ox 97 02/27/25 13:02 O2 Del Method Room Air 02/27/25 13:02 BMI result Body Mass Index 33.1 Hypertensive, initially hypoxic to 86% on room air improved to 97% without intervention General: Well appearing, in no acute distress. Skin: Warm, dry, intact. No rashes or lesions. Head: Normocephalic, atraumatic. EENT: Hearing is intact b/l. Conjunctiva clear. PERRLA. EOM intact. Moist mucous membranes.? Cardiac: Chest wall symmetric. RRR. No JVD. Lungs: No increased effort of breathing. No tripoding. No cough. Breath sounds diminished bilaterally without adventitious breath sounds. Abdomen: Soft, non-tender, non-distended. No rebound tenderness or guarding. Positive BS x4. Back: No midline spinous or paraspinal tenderness. No step off deformity. Ext: 1+ pedal edema to LLE. no calf tenderness. no overlying erythema. No warmth. No crepitus or fluctuance. Full ROM intact to left ankle and all toes. 2+ pt/dp pulses intact. Neuro: AOx3. Normal speech. Strength 5/5 intact throughout. Sensation intact to light touch. NV intact distally. Ambulating with steady gait. Course Course Course Narrative: I reviewed records from [facility] Emergency Department on 01/12/2025. Patient presented with bilateral lower extremity swelling. Denied any chest pain or shortness of breath. Labs showed a BNP of 10. Troponin was not obtained. Venous duplex negative for DVT. She was noted to be saturating 93% on room air. She was ultimately diagnosed with dependent edema and discharged home with recommendation for elevating lower extremities and purchasing compression stockings. Reevaluation(s) Reevaluation #1: CBC without leukocytosis or left shift. no anemia. Slight elevation in H&H to 16.2/49.9, likely secondary to chronic tobacco use. Drink without acute electrolyte abnormality requiring intervention. No MARIANGEL. Normal liver function. Troponin undetectable. EKG showing normal sinus rhythm with a rate of 95 beats per minute, QT 362, QTC 454, no acute ischemic changes or ST elevations. BNP 10. CHF unlikely. Viral serology negative. > chest x-ray showing nonspecific central interstitial prominence. There is no focal consolidation or infiltrate. No effusion. CTA chest does not demonstrate pulmonary embolism or heart strain. There is small pericardial effusion. Airway thickening with interlobular septal thickening, centrilobular emphysema. > x-ray left foot/ankle showing minimal soft tissue swelling. There is no acute fracture. Venous duplex of left lower extremity negative for DVT. No Finn's cyst. Patient was noted to be 86% on room air on arrival after smoking a cigarette outside of the ED. repeat vitals a few minutes later with improvement to 92-93%. She has continued to deny any shortness of breath or cough. Breath sounds slightly diminished wihtout adventitious breath sounds. In ED room at rest she is saturating anywhere between 95 and 97% on room air. There is no increased effort of breathing. We did do an ambulatory O2 trial. Patient briefly dropped to to 89-90% on room air however this quickly improved to 92-93%. She likely has underlying COPD secondary to chronic tobacco use. > I discussed case with my attending, dr. levine. he recommended ED bronch treatment with plan for bedside cardiac ultrasound. upon RT entrance into room, patient declined breathing treatment saying there's nothing wrong with my breathing. I am hungry and would like to go home . also declining bedside ultrasound. > Discussed all work up results with patient: Dependent edema -- advised low salt diet + elevation of LE. compression stockings sent to pharmacy. Hypoxia -- will send symbicort to pharmacy for likely COPD. pulmonology referral provided. advised to follow up Pericardia effusion -- discussed importance of f/u with PCP and cardiology for likely outpatient echocardiogram. referrals provided. Patient has remained stable throughout ED visit today. Discussed worrisome signs and symptoms and when to return to the ED. All questions answered at this time. Patient is agreeable with disposition and stable for discharge. Medications Administered Discontinued Medications Generic Name Dose Route Start Last Admin Trade Name Freq PRN Reason Stop Dose Admin Iohexol 65 ml 02/27/25 11:07 02/27/25 11:08 Iohexol 350 Mg/Ml 100 Ml Infus..Btl IV 02/27/25 11:08 65 ml ONCE ONE Administration Medical Decision Making Medical Decision Making MDM Narrative: 74 year old female with pmhx significant for HTN, PAD, hypothyroidism presents to the ED today for evaluation of left foot swelling x 1 month. Hypertensive to 198/81, tachycardic to 106, hypoxic to 86% on RA. Hypoxia improved to 97% on rest without intervention. No increased effort of breathing or tripoding. No noted cough. Lungs with diminished breath sounds throughout. No adventitious breath sounds. There is 1+ pedal edema to LLE. no calf tenderness. no jvd. Differential diagnosis includes dependent edema, CHF, DVT. Lower suspicion for MSK sprain/strain, fracture. Presentation is not consistent with gout, pseudogout, Lyme arthritis or septic joint. Given hypoxia on arrival, concern for PE, pleural effusion, pulmonary edema, pneumonia, viral syndrome, COPD/asthma Plan at this time is for screening labs, x-ray, EKG, CT chest, venous duplex and re-evaluation. Differential Diagnosis Differential Diagnoses: The differential diagnosis associated with the presentation includes as above. Admission/Observation Consideration of admission/observation: Escalation of care including admission/observation considered admission considered Lab Data MDM Lab Attestation statement: I reviewed the patient's lab results. as above. 02/27/25 08:29 02/27/25 08:29 Labs: Lab Results 02/27/25 Range/Units 08:29 WBC 7.1 (4.8-10.8) X10*3/uL RBC 5.44 (4.20-5.50) X10*6/uL Hgb 16.2 H (12.0-16.0) g/dl Hct 49.9 H (37.0-47.0) % MCV 91.7 (80.0-98.0) fL MCH 29.8 (27.0-33.0) pg MCHC 32.5 (31.0-35.0) g/dl RDW 14.0 (11.0-16.0) % Plt Count 328 (160-400) X10*3/uL MPV 9.6 (9.4-12.3) fL Immature Gran % (Auto) 0.4 (0.0-0.4) % Neut % (Auto) 57.5 (45-73) % Lymph % (Auto) 33.7 (20-40) % [place] % (Auto) 6.9 (2-11) % Eos % (Auto) 1.1 (0-4) % Baso % (Auto) 0.4 (0-2) % Lymph # (Auto) 2.4 (1.2-4.9) X10*3/uL [place] # (Auto) 0.5 (0.1-1.2) X10*3/uL Eos # (Auto) 0.1 (0.0-0.4) X10*3/uL Baso # (Auto) 0.0 (0.0-0.2) X10*3/uL Abs Immat Gran (auto) 0.03 (0.00-0.03) X10*3/uL Absolute Neuts (auto) 4.1 (2.0-8.3) x10*3/uL Absolute Nucleated RBC 0.000 (0.0-0.012) X10*3/uL Nucleated RBC % (auto) 0.0 (0.0-0.2) /100WBC Sodium 141 (135-145) mmol/L Potassium 4.1 (3.3-5.1) mmol/L Chloride 109 H (96-108) mmol/L Carbon Dioxide 22 (22-29) mmol/L Anion Gap 14 (12-20) BUN 14 (9-16) mg/dL Creatinine 0.72 (0.5-1.4) mg/dL Estim Creat Clear Calc 77.2 Estimated GFR > 60 Random Glucose 99 (60-115) mg/dL Calcium 9.3 (8.4-10.2) mg/dL Total Bilirubin 0.4 (0.0-1.0) mg/dL AST 24 (5-31) U/L ALT 21 (0-31) U/L Alkaline Phosphatase 89 (39-117) U/L Troponin I High Sens < 2.7 (<3.5-17.0) ng/L B-Natriuretic Peptide 10 (<100) pg/mL Total Protein 8.0 (6.5-8.0) g/dL Albumin 3.9 (3.5-5.0) g/dL Influenza Type A (PCR) NEGATIVE (Negative) Influenza Type B (PCR) NEGATIVE (Negative) RSV RNA Qual (PCR) NEGATIVE (Negative) SARS-CoV-2 RNA (RT-PCR) NEGATIVE (Negative) Independent Interpretation I performed an independent interpretation of an: EKG, Plain X-Ray, Ultrasound and CT Scan Interpretation: EKG showing normal sinus rhythm, rate of 95 beats per minute, QT 362, QTC 454, no acute ischemic changes or ST elevations Chest x-ray without focal infiltrate or consolidation Venous duplex left lower extremity without clot CT angio chest with out PE Radiology Impression Discussion of test interpretation with radiology: I have reviewed the radiologist's reading. Radiologist Impression: Procedure(s): CT angio chest PE protocol Accession Number(s): [id number] cc: Stanley Sykes MD; Natalie Singh~ Report Number: [id number]: Total DLP = 286.00 mGy-cm CLINICAL HISTORY: smoker, hypoxic, tachy r o PE CT angiography chest with contrast. 3D Postprocessing. Comparison: CT - CT ANGIO CHEST PE PROTOCOL - 02/27/25 10:49 EDT Findings: There is a small pericardial effusion. The heart is nonenlarged. There is no heart strain by CT. No pulmonary arterial filling defect within the visualized arteries. No significant adenopathy. Mild atherosclerotic disease of the coronary arteries. There is bilateral airway thickening and interlobular septal thickening with ground-glass density. No effusion. No pneumothorax. No suspicious pulmonary lesion identified. There is [id number] centrilobular emphysema. No acute osseous finding. Visualized upper abdomen is unremarkable. Degenerative changes seen within the spine. Impression: No pulmonary embolism identified. No heart strain by CT. Small pericardial effusion. Airway thickening with interlobular septal thickening. Correlation for mild interstitial edema. Centrilobular emphysema. Procedure(s): US venous duplex LE LT Accession Number(s): [id number] cc: Stanley Sykes MD; Natalie Singh~ CLINICAL HISTORY: pedal swelling, hypoxic, r o DVT Left lower extremity duplex venous Doppler Comparison: None Technique: Grayscale/Color/Duplex Doppler sonographic evaluation of the deep venous system within the left lower extremity. Findings: Left lower extremity Common femoral vein: Patent CFV/GSV junction: Patent Femoral vein: Patent Popliteal vein: Patent Infrapopliteal veins: Patent where seen Soft tissue: No focal abnormality Impression: 1. Negative for left lower extremity DVT. 2. No Finn's cyst Procedure(s): XR ankle LT min 3V Accession Number(s): [id number] cc: Stanley Sykes MD; Natalie Singh~ CLINICAL HISTORY: atraumatic ankle swelling 3 views left ankle Comparison: None Findings: No fractures, subluxations or dislocations. Ankle mortise intact. Normal plafond. No osteochondral lesions. Calcaneus and subtalar joint intact. No significant arthritic change. Plantar calcaneal enthesophyte Soft tissue swelling Normal pre-Achilles fat pad. No radiopaque foreign body. Impression: 1. Soft tissue swelling without acute osseous abnormality Procedure(s): XR foot LT min 3V Accession Number(s): [id number] cc: Stanley Sykes MD; Natalie Singh~ CLINICAL HISTORY: atraumatic ankle swelling 3 views left foot Comparison: None Findings: No fractures, subluxations or dislocations. No periostitis or bony destruction. Joint intervals are preserved. No marginal erosions or overhanging osteophytes. Calcaneus and subtalar joint intact. Mild joint space narrowing of the interphalangeal joints Plantar calcaneal enthesophyte Soft tissue swelling. Probable calcific tendinopathy at the level of the base of the 5th metatarsal bone No radiopaque foreign body. Impression: 1. Soft tissue swelling with no acute osseous abnormalities Procedure(s): XR chest 2V Accession Number(s): [id number] cc: Stanley Sykes MD; Generic ED Physician~ CLINICAL HISTORY: hypoxic Exam: PA and lateral views of the chest. Comparison: None. Findings: Lungs are well inflated. Cardiac silhouette is within normal limits. Interstitial markings are diffusely prominent, most pronounced centrally. No dense area of consolidation. No pleural effusion or pneumothorax. Impression: Nonspecific central interstitial prominence. This can be seen with edema, bronchitis/bronchiolitis, or interstitial lung disease. External Record Review External record reviewed: Inpatient record, Office record, Outpatient record, Prior outpatient labs, Prior outpatient radiology, Primary care record and Outside ED record Chronic Conditions Patient?s care impacted by: Hypertension Social Determinants Patient?s care significantly limited by Social Determinants of Health including: Other Social Determinant of Health Critical Care Time Critical Care Time Critical Care Time: No Discharge Plan Discharge Clinical Impression: Dependent edema Patient Disposition: Home, Self-Care Instructions: Emphysema (ED), Pericardial Effusion (ED), Leg Edema (ED) Additional Instructions: Your blood work today is reassuring. The EKG of your heart if normal. The ultrasound of your left leg does not demonstrate clot. The x-rays of your left ankle/left foot show minimal swelling without fracture. The CT scan of your chest does not demonstrate clot. Regarding the swelling in your ankles/feet, I recommend wearing compression stockings and elevating your legs whenever possible. I have sent a prescription for these stockings to your pharmacy. I recommend a diet low in sodium (less than 2 grams per day). Monitor your weight daily. You were noted to have low oxygen during your visit today. You are declining any breathing treatments. You state you do not feel short of breath. As discussed, the CT scan of your chest shows findings concerning for COPD. There is also a small amount of fluid around your heart. You need to follow up with both PCP and Cardiology regarding this. You will likely require an outpatient echocardiogram to further assess this fluid. It is very important to follow up regarding this. In the meantime, I am sending a inhaler to your pharmacy called Symbicort. Inhale this twice, 2 times daily. 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 I have also provided you with a referral to pulmonology. Follow up with your PCP this week. Return to the ED with new or worsening symptoms. In the case of an emergency call 911. Prescriptions: New (DME) miscellaneous medical supply Misc See Rx Instructions .Route Qty: 2 0RF Rx Instructions: As directed budesonide-formoterol [Symbicort] 160-4.5 mcg/actuation HFA aerosol inhaler 2 puff inhalation BID Qty: 10.2 0RF No Action aspirin [Adult Low Dose Aspirin] 81 mg tablet,delayed release (DR/EC) 81 mg PO DAILY Qty: 90 1RF cholecalciferol (vitamin D3) 50 mcg (2,000 unit) capsule 50 mcg PO DAILY 90 Days Qty: 90 3RF simvastatin 40 mg tablet 40 mg PO BEDTIME Qty: 90 1RF levothyroxine 112 mcg tablet 112 mcg PO DAILY Qty: 90 1RF bisacodyl [Dulcolax (bisacodyl)] 5 mg tablet,delayed release (DR/EC) 10 mg PO ONCE 1 Days Qty: 2 0RF Rx Instructions: Take 2 tablets by mouth at 12:00pm the day before your procedure. polyethylene glycol 3350 [Miralax] 17 gram/dose powder 238 g PO ONCE 1 Days Qty: 238 0RF Rx Instructions: Take as directed by mouth the day before your procedure. Referrals: [facility] [Provider Group] [facility] [Provider Group] Stanley Sykes MD [Primary Care Provider] - Interventions: ED Discharge Assessment Last Done: 02/27/25 13:02 Discharge Date/Time: 02/27/25 13:03 Print Language: Zambian
--- NOTE | 2025-02-27 10:08 | ECG_ITS ---
Test Reason : HYPOXIA Blood Pressure : */* mmHG Vent. Rate : 95 BPM Atrial Rate : 95 BPM P-R Int : 164 ms QRS Dur : 74 ms QT Int : 362 ms P-R-T Axes : 58 31 71 degrees QTcB Int : 454 ms Normal sinus rhythm Normal ECG When compared with ECG of 13-Jul-2009 20:40, No significant change was found Referred By: Natalie Singh Electronically Signed By: JOSE SU MD
[2025-02-27] MEDS: iohexoL 350 MG/ML 100 ML INFUS..BTL 65 ML IV (11:08)
[2025-02-27 11:23] VITALS: BP 172/82; PULSE 87; RESP 20; TEMP 36.3; O2SAT 97
--- NOTE | 2025-02-27 12:15 | MHC.EDTECH ---
pt walked on o2 sensor, 89-90% but will go right up to 95% quickly. pt reports she doesnt feel lightheaded and feels fine
[2025-02-27 13:02] VITALS: BP 172/82; PULSE 87; RESP 20; TEMP 36.3; O2SAT 97
== END 2025-02-27 13:03 | disposition home or self-care (01) ==
PROVIDERS: Physician Assistant Medical; Emergency Provider Emergency Medicine; PCP Internal Medicine
DX: R60.0 Localized edema (principal); M79.89 Other specified soft tissue disorders; I10 Essential (primary) hypertension; E03.9 Hypothyroidism, unspecified
CPT/HCPCS: 0241U; 36415; 71046; 71275; 73610; 73630; 80053; 83880; 84484; 85025; 93005; 93971; 99284; Q9967

== ENCOUNTER → 2025-02-27 08:06 | Outpatient (BNV) | payer MEDICARE, SELFPAY | PROVIDERS: Emergency Provider Emergency Medicine; PCP Internal Medicine; Visit Provider Radiology Diagnostic Radiology | DX: J43.2 Centrilobular emphysema (principal); I31.39 Other pericardial effusion (noninflammatory); R60.9 Edema, unspecified; J96.21 Acute and chronic respiratory failure with hypoxia; R60.0 Localized edema | CPT/HCPCS: 71046; 71275; 73610; 73630; 93971 ==

== ENCOUNTER → 2025-02-27 10:08 | Outpatient (BNV) | payer MEDICARE, SELFPAY | PROVIDERS: Emergency Provider Emergency Medicine; PCP Internal Medicine; Visit Provider Internal Medicine Cardiovascular Disease | DX: R09.02 Hypoxemia (principal) | CPT/HCPCS: 93010 ==

== ENCOUNTER 2025-03-24 09:53 | Outpatient (REF) | payer MEDICARE, SELFPAY ==
[2025-03-24 13:11] LABS: MANUAL DIFF FLAG NO
[2025-03-24 13:22] LABS: Basophils Percent Auto 0.4 % (0-2); Eosinophils Absolute Auto 0.1 X10*3/uL (0.0-0.4); Eosinophils Percent Auto 0.8 % (0-4); Hematocrit 47.9 % (37.0-47.0); Hemoglobin 15.7 g/dl (12.0-16.0); Imm Gran Abs Auto 0.03 X10*3/uL (0.00-0.03); Imm Gran Pct Auto 0.4 % (0.0-0.4); Lymphocytes Absolute Auto 3.5 X10*3/uL (1.2-4.9); Lymphocytes Percent Auto 41.9 % (20-40); Mean Corpuscular HGB Conc 32.8 g/dl (31.0-35.0); Mean Corpuscular Hemoglobin 29.2 pg (27.0-33.0); Mean Platelet Volume 10.1 fL (9.4-12.3); Monocytes Absolute Auto 0.7 X10*3/uL (0.1-1.2); Monocytes Percent Auto 8.7 % (2-11); Neutrophils Percent Auto 47.8 % (45-73); Platelet Count 293 X10*3/uL (160-400); Red Blood Count 5.38 X10*6/uL (4.20-5.50); Red Cell Distribution Width 13.9 % (11.0-16.0); White Blood Count 8.3 X10*3/uL (4.8-10.8)
[2025-03-24 13:34] LABS: Appearance Urine Clear; Color Urine Yellow; Glucose Urine UA Negative (Negative); Leukocyte Esterase Urine Negative (Negative); Nitrite Urine Negative (Negative); Specific Gravity - Urine <= 1.005 (1.005-1.025); Urine Blood Negative (Negative); Urine Ketones Negative (Negative); Urine Protein Negative (Neg-Trace)
[2025-03-24 13:37] LABS: Alanine Aminotransferase 16 U/L (0-31); Albumin Level 3.9 g/dL (3.5-5.0); Alkaline Phosphatase 78 U/L (39-117); Anion Gap 14 (12-20); Aspartate Amino Transferase 26 U/L (5-31); Bilirubin Total 0.7 mg/dL (0.0-1.0); Blood Urea Nitrogen 11 mg/dL (9-16); Calcium 9.6 mg/dL (8.4-10.2); Carbon Dioxide 23 mmol/L (22-29); Chloride 105 mmol/L (96-108); Cholesterol 141 mg/dL (<200); Estimated Glomerular Filt Rate > 60; Glucose Fasting 75 mg/dL (60-99); HDL Cholesterol 40 mg/dL (>40); LDL Cholesterol Calculated 86 mg/dL (<100); Potassium 3.9 mmol/L (3.3-5.1); Sodium 138 mmol/L (135-145); Total Protein 8.2 g/dL (6.5-8.0); Triglycerides 79 mg/dL (<150)
[2025-03-24 13:56] LABS: Thyroid Stimulating Hormone 0.19 uIU/mL (0.32-4.0); Vitamin D 25-OH Total 10.3 ng/mL (>30)
[2025-03-25 10:29] LABS: Triiodothyronine T3 Total 111 ng/dL (76-181)
[2025-03-25 23:17] LABS: Thyroid Peroxidase Antibodies 15 IU/mL (<9)
== END 2025-03-24 09:54 | disposition home or self-care (01) ==
LOC: HO.HMGCLDS 09:53
PROVIDERS: PCP Internal Medicine; Visit Provider Internal Medicine
DX: D64.9 Anemia, unspecified (principal); R79.89 Other specified abnormal findings of blood chemistry; E78.00 Pure hypercholesterolemia, unspecified; R30.0 Dysuria; E03.9 Hypothyroidism, unspecified; E55.9 Vitamin D deficiency, unspecified
CPT/HCPCS: 36415; 80053; 80061; 81003; 82306; 84439; 84443; 84480; 85025; 86376

== ENCOUNTER 2025-04-12 16:42 | Outpatient (AMB) | payer MEDICARE, SELFPAY ==
[2025-04-12 16:44] VITALS: BP 120/80; PULSE 97; O2SAT 96; BMI 32.6
--- NOTE | 2025-04-12 16:44 | MHC.PC.OV ---
Vital Signs 04/12/25 16:44 Height 5 ft 5 in Weight 196 lb 2 oz BMI 32.6 BP 120/80 Blood Pressure Location Lt brachial Position Sitting Pulse 97 Pulse Source Pulse Oximeter Pulse Oximetry (%) 96 Oxygen Delivery Method Room Air Intake Visit Reasons: FOLLOW UP 6 MONTHS Civil Preparedness Training Officer Required: No Accompanied by: Self / Same As Patient Allergies atorvastatin Adverse Reaction (Unknown, Verified 04/12/25 17:02) diarrhea Medication List - Last Reconciled 04/12/25 by Stanley Sykes MD aspirin (Adult Low Dose Aspirin) 81 mg PO DAILY bisacodyl (Dulcolax (bisacodyl)) 10 mg (2 x 5 mg) PO ONCE 1 day budesonide-formoterol 160-4.5 mcg/actuation (Symbicort) 2 puffs inhalation BID cholecalciferol (vitamin D3) 50 mcg PO DAILY 90 days levothyroxine 112 mcg PO DAILY miscellaneous medical supply As directed polyethylene glycol 3350 (Miralax) 238 grams PO ONCE 1 day simvastatin 40 mg PO BEDTIME Tobacco use date assessed: 04/12/25 Fall risk assessment: No Falls in past year Last assessed Fall Risk: 04/12/25 Dental Screening Dental Screen Date: 04/12/25 Did you have a dental visit in the last 12 months?: Yes Did you have a dental problem in the last 6 months where you did not have access to dental care?: No Was dental information given to patient?: Patient has dentist HPI FOLLOW UP 6 MONTHS HPI Details Patient comes in today for her follow up visit States that she feels okay She denies any headaches or dizziness Denies any chest pains, no increased SOB No nausea/vomiting, no abdominal pain No change in bowel habits noted She had her follow up labs done about 3 weeks ago - to discuss her results REPLACED BY [facility] Medical History Colon cancer screening Peripheral arterial disease Smoker Obesity (BMI 30-39.9) Pure hypercholesterolemia Acquired hypothyroidism Surgical History Hx of colonoscopy S/P angioplasty with stent (~02/2017) S/P excision of lipoma (~07/2016) Family History Father Diabetes mellitus Mother Diabetes mellitus Social History Housing: Apartment Alcohol intake: former Patient Tobacco Use Status: Current someday Tobacco user Tobacco use type: Cigarette Cigarettes Per Day: 1 e-Cigarette/Vaping Use: Never Used Second Hand Smoke Exposure: Yes service: No Current occupational status: retired Cognitive needs: No Hearing needs: No Vision needs: Yes (reading glasses) Questionnaire PHQ-9 Over the last 2 weeks, how often have you been bothered by any of the following problems? 1. Little interest or pleasure in doing things: not at all 2. Feeling down, depressed, or hopeless: not at all 3. Trouble falling or staying asleep, or sleeping too much: not at all 4. Feeling tired or having little energy: not at all 5. Poor appetite or overeating: not at all 6. Feeling bad about yourself - or that you are a failure or have let yourself or your family down: not at all 7. Trouble concentrating on things, such as reading the newspaper or watching television: not at all 8. Moving or speaking so slowly that other people could have noticed. Or the opposite - being so fidgety or restless that you have been moving around a lot more than usual: not at all 9. Thoughts that you would be better off or of hurting yourself in some way: not at all Total score: 0 Depression Screening Interpretation: Negative Depression Screening Done: Yes 83518 - PHQ-9 Billing: Yes Source: Developed by Drs. Rafael Nick, Salome Ferguson, Kemar Joseph and colleagues, with an educational kenny from [employer]. Thrive Questionnaire Date Thrive assessed: 04/12/25 I am a: Patient What is your living situation today?: I have a steady place to live Within the past 12 months, did the food you bought not last and you didn't have the money to get more?: Never true Within the past 12 months, did you worry whether your food would run out before you got money to buy more?: Never true Do you have trouble paying for medicines?: No Do you have trouble getting transportation to medical appointments?: No Do you have trouble paying your heating and electricity bill?: No Do you have trouble taking care of your child, family member or friend?: No Do you have trouble with day-to-day activities such as bathing, preparing meals, shopping, managing finances, etc.?: No Are you currently unemployed and looking for a job?: No Are you interested in more education?: No Please select the resources that you would like help with: None Currently or been in a relationship where the following occur: No concerns reported THRIVE Score: 0 AUDIT C Alcohol Use Questionnaire (AUDIT-C) 1. How often do you have a drink containing alcohol?: Never 3. How often do you have six or more drinks on one occasion?: Never Total Score: 0 Score Reviewed/Action Taken: Yes ARMAND-7 AMB Questionnaire ARMAND-7 Date ARMAND - 7 assessed: 04/12/25 Feeling nervous, anxious, or on edge: 0 = Not at all Not being able to stop or control worryin = Not at all Worrying too much about different things: 0 = Not at all Trouble relaxin = Not at all Being so restless that it is hard to sit still: 0 = Not at all Becoming easily annoyed or irritable: 0 = Not at all Feeling afraid as if something awful might happen: 0 = Not at all Total ARMAND-7 score (0-4 normal; 5-9 mild; 10-14 moderate; 15-21 severe): 0 Source: Developed by Drs. Rafael Nick, Salome Ferguson, Kemar Joseph and colleagues, with an educational kenny from [employer]. Review of Systems Const Denies chills, Denies fatigue, Denies fever(s) and Denies headache(s) ENT Denies dysphagia, Denies dizziness, Denies otalgia, Denies headache(s), Denies neck pain, Denies odynophagia and Denies sore throat Card Denies chest pain, Denies rapid heart rate, Denies irregular heart rhythm, Denies palpitations and Denies dyspnea Resp Denies chest congestion, Denies cough and Denies dyspnea GI Denies abdominal pain, Denies constipation, Denies dysphagia, Denies heartburn, Denies diarrhea, Denies nausea, Denies odynophagia and Denies vomiting Denies difficulty voiding, Denies nocturia, Denies dysuria and Denies urinary urgency Musc Denies back pain, Denies arthralgias and Denies neck pain Skin/Breast Denies rash Neuro Denies dizziness and Denies headache(s) Psych Denies anxiety and Denies depression Endo Denies fatigue and Denies palpitations Physical exam (Primary Care) Vital Signs: Last Vital Signs Pulse 97 04/12/25 16:44 BP 120/80 04/12/25 16:44 Pulse Ox 96 04/12/25 16:44 Oxygen Delivery Method Room Air 04/12/25 16:44 BMI result Body Mass Index 32.6 Tobacco/Smoking Status: Tobacco use Status Tobacco use date assessed 04/12/25 04/12/25 16:50 Patient Tobacco Use Status Current someday Tobacco 04/12/25 16:50 Tobacco use type Cigarette 04/12/25 16:50 e-Cigarette/Vaping Use Never Used 04/12/25 16:50 PHQ-9: PHQ-9 Score PHQ-9: Total score 0 04/12/25 17:03 Depression Screening Interpretation: Negative Thrive Assessment: Date of Thrive Assessment Date Thrive assessed 04/12/25 04/12/25 16:50 Currently or been in a relationship where the following occur: No concerns reported Const General: no acute distress and alert HENMT Ears: TM's normal bilaterally and EAC's normal Throat: Yes posterior oropharynx normal and Yes tonsils normal (no TP congestion) Neck Neck: Yes supple and No lymphadenopathy Thyroid: Thyroid normal Resp Auscultation: clear to auscultation bilaterally, no rales and no wheezes Cardio Rate: regular rate Rhythm: regular rhythm Heart sounds: no murmurs GI Palpation (GI): Soft to palpation and nontender Auscultation: normal bowel sounds General: Yes no CVA tenderness Back/Spine/Pelvis Back: no CVA tenderness Thoracic/Lumbar Spine: No lumbar spinal tenderness Skin Rashes: no rashes Extrem General: Yes no clubbing, cyanosis or edema Results Reviewed Results Reviewed: Laboratory Tests 03/24/25 03/24/25 09:30 09:57 WBC 8.3 Hgb 15.7 Hct 47.9 H Plt Count 293 Sodium 138 Potassium 3.9 Creatinine 0.65 Estimated GFR > 60 Fasting Glucose 75 Calcium 9.6 AST 26 ALT 16 Triglycerides 79 Cholesterol 141 LDL Cholesterol, Calc 86 HDL Cholesterol 40 L 25-OH Vitamin D Total 10.3 L TSH 0.19 L Free T4 1.40 Total T3 111 Ur Specific [place] <= 1.005 Urine Protein Negative Urine Glucose (UA) Negative Urine Blood Negative Urine Nitrite Negative Ur Leukocyte Esterase Negative Thyroid Peroxidase Ab 15 H Coding Level of Care Code Est Pt Level 4 (03776) Complex EM visit Add On G2211 Diagnoses Pure hypercholesterolemia E78.00 Acquired hypothyroidism E03.9 Peripheral arterial disease I73.9 Chronic obstructive pulmonary disease, unspecified COPD type J44.9 COPD type: unspecified COPD Vitamin D deficiency E55.9 Smoker F17.200 Obesity (BMI 30-39.9) E66.9 Additional Codes PHQ-9 - 07677 - PHQ-9 Billing: Yes ([id number]) Assessment & Plan Assessment & Plan (1) Pure hypercholesterolemia: Code(s): E78.00 - Pure hypercholesterolemia, unspecified Category: Medical Plan: Results of her labs done a few weeks ago reviewed and discussed with patient - her cholesterol levels are at or near goal Reinforced low cholesterol diet Continue Simvastatin 40 mg QD Will recheck her labs and fasting lipids in 6 months for follow up (2) Acquired hypothyroidism: Code(s): E03.9 - Hypothyroidism, unspecified Category: Medical Plan: Her TSH remains suppressed but her free T4 and total T3 levels were normal on her recent labs Patient remains clinically euthyroid Continue Levothyroxine 112 mcg QD Will recheck her TFTs in 6 months for follow up May also consider thyroid US later on for further evaluation (3) Peripheral arterial disease: Comment: S/P balloon angioplasty of the left iliac artery [place] [address] Anthony Quiroga Code(s): I73.9 - Peripheral vascular disease, unspecified Category: Medical Plan: Patient currently remains asymptomatic with no symptoms of claudication She had repeat arterial duplex done in January 2024, which showed only minimal vascular disease Continue Aspirin 81 mg QD Follow up with vascular surgery as scheduled (4) COPD (chronic obstructive pulmonary disease): Code(s): J44.9 - Chronic obstructive pulmonary disease, unspecified Category: Medical Qualifiers: COPD type: unspecified COPD Qualified Code(s): J44.9 - Chronic obstructive pulmonary disease, unspecified Plan: Continue Symbicort 160-4.5 mcg 2 inhalations BID (5) Vitamin D deficiency: Code(s): E55.9 - Vitamin D deficiency, unspecified Category: Medical Plan: She is advised that her Vitamin D level has dropped significantly on her recent labs and she should make sure she is still taking her Vitamin D supplements - continue Vitamin D3 2000 units QD Will recheck her Vitamin D level in 6 months for follow up (6) Smoker: Code(s): F17.200 - Nicotine dependence, unspecified, uncomplicated Category: Social Hx Plan: Patient is counseled again on complete smoking cessation (7) Obesity (BMI 30-39.9): Code(s): E66.9 - Obesity, unspecified Category: Medical Plan: Reinforced diet/exercise as tolerated/lose weight Plan Follow up in 6 months Orders: Orders Complete Blood Count Auto Diff 6 Months D64.9 - Anemia, unspecified Lipid Panel 6 Months E78.00 - Pure hypercholesterolemia, unspecified Comprehensive [place]. Panel Fast 6 Months E78.00 - Pure hypercholesterolemia, unspecified Thyroid Stimulating Hormone 6 Months E03.9 - Hypothyroidism, unspecified Free T4 (Free Thyroxine) 6 Months E03.9 - Hypothyroidism, unspecified Vitamin D 25-OH Total 6 Months E55.9 - Vitamin D deficiency, unspecified Vitamin B12 and Folate 6 Months E53.8 - Deficiency of other specified B group vitamins Medications: Refilled cholecalciferol (vitamin D3) 50 mcg PO DAILY 90 days 90 caps 3RF E55.9 - Vitamin D deficiency, unspecified
== END 2025-04-12 17:10 | disposition home or self-care (01) ==
LOC: HO.HMCH 16:43
PROVIDERS: PCP Internal Medicine; Visit Provider Internal Medicine
DX: E78.00 Pure hypercholesterolemia, unspecified (principal); J44.9 Chronic obstructive pulmonary disease, unspecified; E66.9 Obesity, unspecified; Z68.32 Body mass index [BMI] 32.0-32.9, adult; E03.9 Hypothyroidism, unspecified; I73.9 Peripheral vascular disease, unspecified; E55.9 Vitamin D deficiency, unspecified; F17.200 Nicotine dependence, unspecified, uncomplicated

== ENCOUNTER → 2025-04-12 16:42 | Outpatient (BNVA) | payer MEDICARE, SELFPAY | PROVIDERS: PCP Internal Medicine; Visit Provider Internal Medicine | DX: E78.00 Pure hypercholesterolemia, unspecified (principal); E03.9 Hypothyroidism, unspecified; E55.9 Vitamin D deficiency, unspecified; I73.9 Peripheral vascular disease, unspecified; J44.9 Chronic obstructive pulmonary disease, unspecified; E66.9 Obesity, unspecified; Z68.32 Body mass index [BMI] 32.0-32.9, adult; F17.200 Nicotine dependence, unspecified, uncomplicated; Z71.3 Dietary counseling and surveillance; Z71.6 Tobacco abuse counseling | CPT/HCPCS: 96127; 99212 ==

== ENCOUNTER 2025-10-01 07:06 | Outpatient (REF) | payer MEDICARE, SELFPAY | END 2025-10-01 07:07 | disposition home or self-care (01) | LOC: HO.MAMMO 07:06 | PROVIDERS: PCP Internal Medicine; Visit Provider Internal Medicine | DX: Z13.89 Encounter for screening for other disorder (principal) ==

== ENCOUNTER 2025-10-31 09:16 | Outpatient (REF) | payer MEDICARE, SELFPAY ==
[2025-10-31 13:37] LABS: MANUAL DIFF FLAG NO
[2025-10-31 13:44] LABS: Hematocrit 51.0 % (37.0-47.0); Hemoglobin 16.3 g/dl (12.0-16.0); Imm Gran Abs Auto 0.01 X10*3/uL (0.00-0.03); Imm Gran Pct Auto 0.1 % (0.0-0.4); Lymphocytes Absolute Auto 3.3 X10*3/uL (1.2-4.9); Mean Corpuscular HGB Conc 32.0 g/dl (31.0-35.0); Mean Corpuscular Hemoglobin 29.6 pg (27.0-33.0); Mean Corpuscular Volume 92.7 fL (80.0-98.0); NRBC Abs Auto 0.000 X10*3/uL (0.0-0.012); NRBC Pct Auto 0.0 /100WBC (0.0-0.2); Platelet Count 297 X10*3/uL (160-400); Red Blood Count 5.50 X10*6/uL (4.20-5.50); White Blood Count 7.1 X10*3/uL (4.8-10.8)
[2025-10-31 14:02] LABS: Alanine Aminotransferase 30 U/L (0-31); Albumin Level 4.2 g/dL (3.5-5.0); Alkaline Phosphatase 84 U/L (39-117); Anion Gap 11 (12-20); Aspartate Amino Transferase 32 U/L (5-31); Blood Urea Nitrogen 20 mg/dL (9-16); Calcium 9.7 mg/dL (8.4-10.2); Carbon Dioxide 26 mmol/L (22-29); Chloride 107 mmol/L (96-108); Cholesterol 164 mg/dL (<200); Estimated Glomerular Filt Rate > 60; HDL Cholesterol 49 mg/dL (>40); Potassium 4.7 mmol/L (3.3-5.1); Sodium 139 mmol/L (135-145); Total Protein 8.2 g/dL (6.5-8.0); Triglycerides 108 mg/dL (<150)
[2025-10-31 14:21] LABS: Free T4 (Free Thyroxine) 1.26 ng/dL (0.71-1.85); Thyroid Stimulating Hormone 0.16 uIU/mL (0.32-4.0)
[2025-10-31 14:30] LABS: Folate 10.2 ng/mL (> or = 4.0); Vitamin B12 498 pg/mL (200-900)
== END 2025-10-31 09:17 | disposition home or self-care (01) ==
LOC: HO.HMGCLDS 09:16
PROVIDERS: PCP Internal Medicine; Visit Provider Internal Medicine
DX: E53.8 Deficiency of other specified B group vitamins (principal); D64.9 Anemia, unspecified; E78.00 Pure hypercholesterolemia, unspecified; E03.9 Hypothyroidism, unspecified; E55.9 Vitamin D deficiency, unspecified
CPT/HCPCS: 36415; 80053; 80061; 82306; 82607; 82746; 84439; 84443; 85025

== ENCOUNTER 2025-11-01 16:27 | Outpatient (AMB) | payer MEDICARE, SELFPAY ==
[2025-11-01 16:31] VITALS: BP 150/78; PULSE 102; RESP 18; O2SAT 94; BMI 33.1
--- NOTE | 2025-11-01 16:31 | A.OFFPC_ITS ---
Vital Signs 11/01/25 16:31 Height 5 ft 5 in Weight 199 lb 2 oz BMI 33.1 BP 150/78 H Blood Pressure Location Lt brachial Position Sitting Respiration 18 Pulse 102 H Pulse Source Pulse Oximeter Temp Source Temporal Artery Scan Pulse Oximetry (%) 94 Oxygen Delivery Method Room Air Intake Visit Reasons: 6 Months Pleater Hand Required: No Accompanied by: Self / Same As Patient Allergies atorvastatin Adverse Reaction (Unknown, Verified 11/01/25 17:18) diarrhea Medication List - Last Reconciled 11/01/25 by Stanley Sykes MD aspirin (Adult Low Dose Aspirin) 81 mg PO DAILY cholecalciferol (vitamin D3) 50 mcg PO DAILY 90 days levothyroxine 112 mcg PO DAILY miscellaneous medical supply As directed [id number] 3.5mg-400 unit- 5,000 unit/gram (Triple Antibiotic) 1 appl topical BID simvastatin 40 mg PO BEDTIME Tobacco use date assessed: 11/01/25 Fall risk assessment: No Falls in past year Last assessed Fall Risk: 11/01/25 Dental Screening Dental Screen Date: 11/01/25 Did you have a dental visit in the last 12 months?: Yes Did you have a dental problem in the last 6 months where you did not have access to dental care?: No Was dental information given to patient?: Patient has dentist HPI 6 Months HPI Details Patient comes in today for her follow up visit States that she feels okay She denies any headaches or dizziness Denies any chest pains, no increased SOB No nausea/vomiting, no abdominal pain No change in bowel habits noted She had her follow up labs done yesterday - to discuss her results [facility] Medical History Colon cancer screening Peripheral arterial disease Smoker Obesity (BMI 30-39.9) Pure hypercholesterolemia Acquired hypothyroidism Surgical History Hx of colonoscopy S/P angioplasty with stent (~02/2017) S/P excision of lipoma (~07/2016) Family History Father Diabetes mellitus Mother Diabetes mellitus Social History Housing: Apartment Alcohol intake: former Patient Tobacco Use Status: Current someday Tobacco user Tobacco use type: Cigarette Cigarettes Per Day: 1 e-Cigarette/Vaping Use: Never Used Second Hand Smoke Exposure: Yes service: No Current occupational status: retired Cognitive needs: No Hearing needs: No Vision needs: Yes (reading glasses) Questionnaire PHQ-9 Over the last 2 weeks, how often have you been bothered by any of the following problems? Depression Screening Interpretation: Negative Depression Screening Done: Yes Source: Developed by Drs. Rafael Nick, Salome Ferguson, Kemar Joseph and colleagues, with an educational kenny from [employer]. Thrive Questionnaire Date Thrive assessed: 11/01/25 I am a: Patient What is your living situation today?: I have a steady place to live Within the past 12 months, did the food you bought not last and you didn't have the money to get more?: Never true Within the past 12 months, did you worry whether your food would run out before you got money to buy more?: Never true Do you have trouble paying for medicines?: No Do you have trouble getting transportation to medical appointments?: No Do you have trouble paying your heating and electricity bill?: No Do you have trouble taking care of your child, family member or friend?: No Do you have trouble with day-to-day activities such as bathing, preparing meals, shopping, managing finances, etc.?: No Are you currently unemployed and looking for a job?: No Are you interested in more education?: No Please select the resources that you would like help with: None Currently or been in a relationship where the following occur: I choose not to answer THRIVE Score: 0 ARMAND-7 AMB Questionnaire ARMAND-7 Date ARMAND - 7 assessed: 10/03/25 Source: Developed by Drs. Rafael Nick, Salome Ferguson, Kemar Joseph and colleagues, with an educational kenny from [employer]. Review of Systems Const Denies chills, Denies fatigue, Denies fever(s) and Denies headache(s) ENT Denies dysphagia, Denies dizziness, Denies otalgia, Denies headache(s), Denies neck pain, Denies odynophagia and Denies sore throat Card Denies chest pain, Denies rapid heart rate, Denies irregular heart rhythm, Denies palpitations and Denies dyspnea Resp Denies chest congestion, Denies cough and Denies dyspnea GI Denies abdominal pain, Denies constipation, Denies dysphagia, Denies heartburn, Denies diarrhea, Denies nausea, Denies odynophagia and Denies vomiting Denies difficulty voiding, Denies nocturia, Denies dysuria and Denies urinary urgency Musc Denies back pain, Denies arthralgias and Denies neck pain Skin/Breast Denies rash Neuro Denies dizziness and Denies headache(s) Psych Denies anxiety and Denies depression Endo Denies fatigue and Denies palpitations Physical exam (Primary Care) Vital Signs: Last Vital Signs Pulse 102 H 11/01/25 16:31 Resp 18 11/01/25 16:31 BP 150/78 H 11/01/25 16:31 Pulse Ox 94 11/01/25 16:31 Oxygen Delivery Method Room Air 11/01/25 16:31 BMI result Body Mass Index 33.1 Tobacco/Smoking Status: Tobacco use Status Tobacco use date assessed 11/01/25 11/01/25 16:41 Patient Tobacco Use Status Current someday Tobacco 11/01/25 16:41 Tobacco use type Cigarette 11/01/25 16:41 e-Cigarette/Vaping Use Never Used 11/01/25 16:41 Depression Screening Interpretation: Negative Thrive Assessment: Date of Thrive Assessment Date Thrive assessed 11/01/25 12 16:41 Currently or been in a relationship where the following occur: I choose not to answer Const General: no acute distress and alert HENMT Ears: TM's normal bilaterally and EAC's normal Throat: Yes posterior oropharynx normal and Yes tonsils normal (no TP congestio n) Neck Neck: Yes supple and No lymphadenopathy Thyroid: Thyroid normal Resp Auscultation: clear to auscultation bilaterally, no rales and no wheezes Cardio Rate: regular rate Rhythm: regular rhythm Heart sounds: no murmurs GI Palpation (GI): Soft to palpation and nontender Auscultation: normal bowel sounds General: Yes no CVA tenderness Back/Spine/Pelvis Back: no CVA tenderness Thoracic/Lumbar Spine: No lumbar spinal tenderness Skin Rashes: no rashes Extrem General: Yes no clubbing, cyanosis or edema Results Reviewed Results Reviewed: Laboratory Tests 03/24/25 10/31/25 09:57 09:31 WBC 7.1 Hgb 16.3 H Hct 51.0 H Plt Count 297 Sodium 139 Potassium 4.7 D Creatinine 0.82 Estimated GFR > 60 Fasting Glucose 89 Calcium 9.7 AST 32 H ALT 30 Triglycerides 108 Cholesterol 164 LDL Cholesterol, Calc 94 HDL Cholesterol 49 Vitamin B12 498 25-OH Vitamin D Total 19.9 L TSH 0.16 L Free T4 1.26 Total T3 111 Coding Level of Care Code Est Pt Level 4 (71803) Diagnoses Pure hypercholesterolemia E78.00 Acquired hypothyroidism E03.9 Peripheral arterial disease I73.9 Chronic obstructive pulmonary disease, unspecified COPD type J44.9 COPD type: unspecified COPD Vitamin D deficiency E55.9 Smoker F17.200 Obesity (BMI 30-39.9) E66.9 Assessment & Plan Assessment & Plan (1) Pure hypercholesterolemia: Code(s): E78.00 - Pure hypercholesterolemia, unspecified Category: Medical Plan: Results of her labs done yesterday reviewed and discussed with patient - her cholesterol levels have increased slightly from previous Reinforced low cholesterol diet Continue Simvastatin 40 mg QD Will recheck her labs and fasting lipids in 6 months for follow up (2) Acquired hypothyroidism: Code(s): E03.9 - Hypothyroidism, unspecified Category: Medical Plan: Her TSH remains suppressed but her free T4 and total T3 levels were normal on her recent labs Patient remains clinically euthyroid Continue Levothyroxine 112 mcg QD Will recheck her TFTs in 6 months for follow up May also consider thyroid US later on for further evaluation (3) Peripheral arterial disease: Comment: S/P balloon angioplasty of the left iliac artery [place] [address] Anthony Quiroga Code(s): I73.9 - Peripheral vascular disease, unspecified Category: Medical Plan: Patient currently remains asymptomatic with no symptoms of claudication She had repeat arterial duplex done in January 2024, which showed only minimal vascular disease Continue Aspirin 81 mg QD Follow up with vascular surgery as scheduled (4) COPD (chronic obstructive pulmonary disease): Code(s): J44.9 - Chronic obstructive pulmonary disease, unspecified Category: Medical Qualifiers: COPD type: unspecified COPD Qualified Code(s): J44.9 - Chronic obstructive pulmonary disease, unspecified Plan: Controlled with no recent exacerbations Continue Symbicort 160-4.5 mcg 2 inhalations BID (5) Vitamin D deficiency: Code(s): E55.9 - Vitamin D deficiency, unspecified Category: Medical Plan: She is advised that her Vitamin D level has improved but is still low on her recent labs Continue Vitamin D3 2000 units QD Will recheck her Vitamin D level in 6 months for follow up (6) Smoker: Code(s): F17.200 - Nicotine dependence, unspecified, uncomplicated Category: Social Hx Plan: Patient is counseled again on complete smoking cessation (7) Obesity (BMI 30-39.9): Code(s): E66.9 - Obesity, unspecified Category: Medical Plan: Reinforced diet/exercise as tolerated/lose weight Plan Follow up in 6 months Orders: Orders Complete Blood Count Auto Diff 6 Months D64.9 - Anemia, unspecified Free T4 (Free Thyroxine) 6 Months E03.9 - Hypothyroidism, unspecified Comprehensive [place]. Panel Fast 6 Months E78.00 - Pure hypercholesterolemia, unspecified Thyroid Stimulating Hormone 6 Months E03.9 - Hypothyroidism, unspecified Lipid Panel 6 Months E78.00 - Pure hypercholesterolemia, unspecified UA CC w/rflx Micro + Cult 6 Months R30.0 - Dysuria Vitamin D 25-OH Total 6 Months E55.9 - Vitamin D deficiency, unspecified
--- OUTSIDE RECORDS SUMMARY | 2025-11-01 20:15 | XMS_ITS | Clinical Summary ---
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 Active SIMVASTATIN ORAL Take by mouth. Active aspirin 81 mg EC tablet Take 1 tablet (81 mg total) by mouth 1 (one) time each day. Active levothyroxine (SYNTHROID, LEVOTHROID) 112 mcg tablet Take 1 tablet (112 mcg total) by mouth 1 (one) time each day. Active Active Problems Problem Noted Date Diagnosed Date HTN (hypertension) 10/13/2024 History of substance abuse 07/28/2019 Overview (10/13/2024): alcohol Hypothyroidism 07/28/2019 Bilateral carotid artery stenosis 09/14/2018 PAD (peripheral artery disease) 09/14/2018 Surgical History Surgery Date Site/Laterality Comments ANGIOPLASTY 02/20/2017 Left PROCEDURE: HISTORICAL ANGIOPLASTY W/STENT FOOT SURGERY PROCEDURE: HISTORICAL FOOT SURGERY Medical History Medical History Date Comments HTN (hypertension) DX:HTN (hyper tension) Obesity DX:Obesity PAD (peripheral artery disea se) ([facility] V24) DX:PAD (peripheral artery di sease) ([facility]) Bilateral carotid artery stenosis 09/14/2018 DX:Bilateral carotid artery stenosis Hypothyroidism 07/28/2019 DX:Hypothyroidis m History of substance abuse ( [facility] V24, [facility] V28) 07/28/2019 DX:History of substance abus e ([facility]); COMMENT: alcohol Family History Medical History Relation Name Comments Diabetes Father Diabetes Mother Relation Name Status Comments Father Mother Social History Tobacco Use Types Packs/Day Years Used Date Smoking Tobacco: Every Day Cigarettes Smokeless Tobacco: Never Tobacco Cessation:Ready to Q uit: Not Asked; Counseling Given: Not Answered Alcohol Use Standard Drinks/Week Comments Never 0 (1 standard drink = 0.6 oz pur e alcohol) Comments Unknown Sex and Gender Information Value Date Recorded Sex Assigned at Female 01/13/2025 1:22 AM EST Legal Sex Female 12:35 PM EST Gender Identity Female 01/13/2025 1:22 AM EST Sexual Orientation Straight 01/13/2025 1: 22 AM EST Last Filed Vital Signs Vital Sign Reading Time Taken Comments Blood Pressure 150/73 01/13/2025 1:27 AM EST Pulse 97 01/13/2025 1:27 AM EST Temperature 36.8 C (98.2 F) 01/13/2025 1:27 AM EST Respiratory Rate 18 01/13/2025 1:27 AM EST Oxygen Saturation 93% 01/13/2025 1:27 AM EST Inhaled Oxygen Concentration - - Weight 86.2 kg (190 lb) 01/12/2025 5:34 PM EST Height 167.6 cm (5' 6 ) 01/12/2025 5:34 PM EST Body Mass Index 30.67 01/12/2025 5:34 PM EST Plan of Treatment Health Maintenance Due Date Last Done Comments Breast Cancer Screening 1950 Colorectal Cancer Screening: Colonoscopy 1950 Pneumococcal Vaccine: 50+ Years (1 of 2 - PCV) 1970 RSV Immunization Adult Patients (1 - Risk 50-74 years 1-dose series) 2001 Zoster Vaccines (1 of 2) 2001 Cholesterol Screening (Lipid Panel) 10/26/2022 Falls Risk Assessment 10/26/2022 Hepatitis C Screening 10/26/2022 Medicare Annual Wellness Visit 10/26/2022 Osteoporosis Screening (Bone Density Screening) 10/26/2022 Social Influencers of Health Screening 10/26/2022 Depression Screening 11/17/2024 COVID-19 Vaccine (3 - 2024-2 6 season) 2025 01/01/2022, 12/11/2021 Influenza Vaccine (#1) 2025 Hypertension/CHF/CAD Annual BMP Blood Test 01/13/2026 01/13/2025 DTaP,Tdap,and Td Vaccines (3 - Td or Tdap) 11/26/2027 11/26/2017, 08/26/2007 HIB Vaccines Aged Out No longer eligi ble based on patient's age to complete this topic HPV Vaccines Aged Out No longer eligi ble based on patient's age to complete this topic Hepatitis A Vaccines Aged Out No long er eligible based on patient's age to complete this topic Hepatitis B Vaccines Aged Out No long er eligible based on patient's age to complete this topic IPV Vaccines Aged Out No longer eligi ble based on patient's age to complete this topic MMR Vaccines Aged Out No longer eligi ble based on patient's age to complete this topic Meningococcal ACWY Vaccine Aged Out N o longer eligible based on patient's age to complete this topic Meningococcal B Vaccine Aged Out No l onger eligible based on patient's age to complete this topic RSV Immunization Patients Under 20 months Aged Out No longer eligible b ased on patient's age to complete this topic Varicella Vaccines Aged Out No longer eligible based on patient's age to complete this topic Procedures Procedure Name Priority Date/Time Associated Diagnosis Comments COMPREHENSIVE METABOLIC PANEL STAT 01/13/2025 1:11 AM EST from Last 3 Months or Most Recently Relevant to Health Maintenance Results * (ABNORMAL) Comprehensive metabolic panel (01/13/2025 1:11 AM EST) Sodium 140 133 - 145 mmol/L LAB CHEMISTRY METHOD 01/13/2025 2:01 AM EST [facility] Potassium 4.2 3.5 - 5.5 mmol/L LAB CHEMISTRY METHOD 01/13/2025 2:01 AM EST [facility] Chloride 108 96 - 110 mmol/L LAB CHEMISTRY METHOD 01/13/2025 2:01 AM EST [facility] CO2 25 21 - 32 mmol/L LAB CHEMISTRY METHOD 01/13/2025 2:01 AM EST [facility] Anion Gap 7 3 - 11 LAB CHEMISTRY METHOD 01/13/2025 2:01 AM [facility] Glucose 93 70 - 100 mg/dL LAB CHEMISTRY METHOD 01/13/2025 2:01 AM [facility] BUN 9 5 - 25 mg/dL LAB CHEMISTRY METHOD 01/13/2025 2:01 AM [facility] Creatinine 0.65 0.50 - 1.10 mg/dL LAB CHEMISTRY METHOD 01/13/2025 2:01 AM [facility] eGFR 93 >=60 mL/min/1. 73m2 LAB CHEMISTRY METHOD 01/13/2025 2:01 AM [facility] Comment:Calculation based on the Chronic Kidney Disease Epidemiology Collaboration (CKD-EPI) equation refit without adjustment for race. BUN/Creatinine Ratio 13.8 LAB CHEMISTRY METHOD 01/13/2025 2:01 AM [facility] Calcium 9.3 8.5 - 10.5 mg/dL LAB CHEMISTRY METHOD 01/13/2025 2:01 AM [facility] AST (SGOT) 21 10 - 42 unit/L LAB CHEMISTRY METHOD 01/13/2025 2:01 AM [facility] ALT (SGPT) 21 10 - 60 unit/L LAB CHEMISTRY METHOD 01/13/2025 2:01 AM [facility] Alkaline Phosphatase 90 42 - 121 unit/L LAB CHEMISTRY METHOD 01/13/2025 2:01 AM [facility] Total Protein 8.2(H) 6.0 - 8.0 g/dL LAB CHEMISTRY METHOD 01/13/2025 2:01 AM [facility] Albumin 3.5 3.2 - 5.0 g/dL LAB CHEMISTRY METHOD 01/13/2025 2:01 AM [facility] Total Bilirubin 0.5 0.0 - 1.4 mg/dL LAB CHEMISTRY METHOD 01/13/2025 2:01 AM [facility] Blood Venous blood specimen / Unknown Venipuncture / Unknown 01/13/2025 1:11 AM EST 01/13/2025 1:36 AM EST us Nile Minor DO LAB BLOOD ORDERABLES Final Res ult [facility] [address] [place] [address], from Last 3 Months or Most Recently Relevant to Health Maintenance Insurance [employer] MEDICARE Care Teams 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
== END 2025-11-01 17:27 | disposition home or self-care (01) ==
LOC: HO.HMCH 16:27
PROVIDERS: PCP Internal Medicine; Visit Provider Internal Medicine
DX: J44.9 Chronic obstructive pulmonary disease, unspecified (principal); E66.9 Obesity, unspecified; Z68.33 Body mass index [BMI] 33.0-33.9, adult; E78.00 Pure hypercholesterolemia, unspecified; E03.9 Hypothyroidism, unspecified; I73.9 Peripheral vascular disease, unspecified; E55.9 Vitamin D deficiency, unspecified; F17.200 Nicotine dependence, unspecified, uncomplicated

== ENCOUNTER → 2025-11-01 16:27 | Outpatient (BNVA) | payer MEDICARE, SELFPAY | PROVIDERS: PCP Internal Medicine; Visit Provider Internal Medicine | DX: Z71.2 Person consulting for explanation of examination or test findings (principal); E78.00 Pure hypercholesterolemia, unspecified; E03.9 Hypothyroidism, unspecified; I73.9 Peripheral vascular disease, unspecified; J44.9 Chronic obstructive pulmonary disease, unspecified; E55.9 Vitamin D deficiency, unspecified; E66.9 Obesity, unspecified; F17.200 Nicotine dependence, unspecified, uncomplicated; D64.9 Anemia, unspecified; R30.0 Dysuria | CPT/HCPCS: 99212 ==